=== PATIENT | female | born 1990 | race African-American/Black ===

== ENCOUNTER 2016-05-23 00:08 | Inpatient (IN) | payer SELFPAY ==
[~2016-05-23] VITALS: Ht 165.1 cm; Wt 59.9 kg
[~2016-05-23 00:08] MED LIST: ALBU8.5H6 INH; BUDE10.2 IH; BUDE10.22 IH; PRED20TA PO; PRED50TA PO; PREN1TAB54 PO; PROAIR HFA8.5 GM INH
[2016-05-23] MEDS ORDERED: IPRATRPIUM/ALBUTEROL 0.5/2.5MG 3 ML NEBU. NEB ONE ×2 (00:15→09:00)
[2016-05-23] MEDS ORDERED: IPRATRPIUM/ALBUTEROL 0.5/2.5MG 3 ML NEBU. ONE (00:16)
[2016-05-23] MEDS ORDERED: EPINEPHRINE 1 MG/ML VIAL. ONE (00:23)
[2016-05-23] MEDS ORDERED: ALBUTEROL SULFATE 2.5 MG/3 ML NEBU. CONT NEB ONE (00:30)
[2016-05-23] MEDS ORDERED: methylPREDNISolone SOD SUCC PF 125 MG/2 ML VIAL. IV ONE (00:30)
[2016-05-23 00:38] LABS: BASO # 0.1 x10^3/uL (0.0-0.2); BASO % 1 % (0-3); EOS % 3 % (0-3); HEMATOCRIT 41.8 % (36.0-47.0); HEMOGLOBIN 13.1 g/dL (12.0-15.5); LYMPH # 1.7 x10^3/uL (1.0-4.8); LYMPH % 9 % (24-48); MEAN CORPUSCULAR HEMOGLOBIN 25 pg (25-35); MEAN CORPUSCULAR HGB CONC 31 g/dL (31-37); MEAN CORPUSCULAR VOLUME 79 fL (79-100); MONO % 5 % (0-9); NEUT % 83 % (31-73); PLATELET COUNT 221 x10^3/uL (140-400); RED BLOOD COUNT 5.27 x10^6/uL (3.50-5.40); RED CELL DISTRIBUTION WIDTH 16.7 % (11.5-14.5)
[2016-05-23] MEDS ORDERED: MAGNESIUM SULFATE 2GM 50 ML IV ONE (00:45)
[2016-05-23 00:49] LABS: CALCIUM 9.1 mg/dL (8.5-10.1); CREATININE 0.7 mg/dL (0.6-1.0); GFR 122.4; POTASSIUM 3.7 mmol/L (3.5-5.1)
[2016-05-23] MEDS ORDERED: LORAZEPAM 1 MG TABLET. PO ONE (01:00)
[2016-05-23] MEDS ORDERED: EPINEPHRINE 1 MG/ML VIAL. IM ONE (01:15)
[2016-05-23] MEDS ORDERED: MORPHINE SULFATE 2 MG/ML DISP.SYRIN. IV PRN (02:00)
[2016-05-23] MEDS ORDERED: ONDANSETRON PF 4 MG/2 ML VIAL. IV PRN (02:00)
[2016-05-23 04:09] LABS: HYPOCHROMIA SLIGHT; PLT ESTIMATE ADEQUATE (ADEQUATE)
--- NOTE | 2016-05-23 06:20 | PHYS DOC ---
Past Medical History Past Medical History: Asthma Past Surgical History: No Surgical History Alcohol Use: Occasionally Drug Use: None Adult General Chief Complaint Chief Complaint: ASTHMA HPI HPI 25-year-old female presenting to the emergency department today with worsening shortness of breath and asthma attack. She is having significant difficulty breathing and is able to only speak in short phrases. She has been trying her breathing treatments at home with mild improvement. She reports having cough and chills at home over the past few days. Onset 2-3 days. Location lungs. Duration intermittent. No exacerbating factors present. ROS is negative for abdominal pain nausea vomiting. Positive for cough and chills at home. All other review of systems is negative unless otherwise noted in history of present illness. Review of Systems Review of Systems SEE ABOVE. Current Medications Current Medications Current Medications Medications (Trade) Dose Ordered Sig/Alex Start Time Stop Time Status Last Admin Dose Admin Albuterol Sulfate 15 mg 15 mg 1X ONCE 05/23/16 00:30 05/23/16 00:31 DC 05/23/16 00:34 15 MG Albuterol/ Ipratropium (Duoneb) 3 ml STK-MED ONCE 05/23/16 00:16 05/23/16 00:17 DC Epinephrine HCl (Adrenalin) 0.3 mg 1X ONCE 05/23/16 01:15 05/23/16 01:16 DC 05/23/16 01:07 0.3 MG Lorazepam (Ativan) 1 mg 1X ONCE 05/23/16 01:00 05/23/16 01:01 DC 05/23/16 00:56 1 MG Magnesium Sulfate/ Dextrose (Magnesium Sulfate PREMIX 2GM) 50 ml @ 25 mls/hr 1X ONCE 05/23/16 00:45 05/23/16 02:44 DC 05/23/16 00:35 25 MLS/HR Methylprednisolone Sodium Succinate (Solu-Medrol 125mg Vial) 125 mg 1X ONCE 05/23/16 00:30 05/23/16 00:31 DC 05/23/16 00:34 125 MG Morphine Sulfate 2 mg PRN Q2HR PRN 05/23/16 02:00 05/24/16 01:59 Ondansetron HCl (Zofran) 4 mg PRN Q8HRS PRN 05/23/16 02:00 05/24/16 01:59 Allergies Allergies Allergies Coded Allergies Type Severity Reaction Last Updated Verified No Known Drug Allergies 08/28/14 No Physical Exam Physical Exam Constitutional: Well developed, well nourished, patient is in significant respiratory distress., Work of breathing is significantly increased. Patient speaking in small phrases. HENT: Normocephalic, atraumatic, bilateral external ears normal, oropharynx moist, no oral exudates, nose normal. [] Eyes: PERRLA, EOMI, conjunctiva normal, no discharge. Neck: Normal range of motion, no tenderness, supple, no stridor. Cardiovascular:Heart rate regular rhythm, no murmur [] Lungs & Thorax: Diffuse wheezing both on inspiration and on expiration. Abdomen: Bowel sounds normal, soft, no tenderness, no masses, no pulsatile masses. Skin: Warm, dry, no erythema, no rash. [] Back: No tenderness, no CVA tenderness. Extremities: No tenderness, no cyanosis, no clubbing, ROM intact, no edema. [] Neurologic: Alert and oriented X 3, normal motor function, normal sensory function, no focal deficits noted. [] Psychologic: Affect normal, judgement normal, mood normal. [] Current Patient Data Vital Signs Vital Signs Date Time Temp Pulse Resp B/P Pulse Ox O2 Delivery O2 Flow Rate FiO2 05/23/16 00:40 99 Room Air 05/23/16 00:15 98.0 134 28 151/99 98.0 Lab Values Laboratory Tests Test 05/23/16 00:25 White Blood Count 19.0x10^3/uL (4.0-11.0) H Red Blood Count 5.27x10^6/uL (3.50-5.40) Hemoglobin 13.1g/dL (12.0-15.5) Hematocrit 41.8% (36.0-47.0) Mean Corpuscular Volume 79fL (79-100) Mean Corpuscular Hemoglobin 25pg (25-35) Mean Corpuscular Hemoglobin Concent 31g/dL (31-37) Red Cell Distribution Width 16.7% (11.5-14.5) H Platelet Count 221x10^3/uL (140-400) Neutrophils (%) (Auto) 83% (31-73) H Lymphocytes (%) (Auto) 9% (24-48) L Monocytes (%) (Auto) 5% (0-9) Eosinophils (%) (Auto) 3% (0-3) Basophils (%) (Auto) 1% (0-3) Neutrophils # (Auto) 15.7x10^3uL (1.8-7.7) H Lymphocytes # (Auto) 1.7x10^3/uL (1.0-4.8) Monocytes # (Auto) 1.0x10^3/uL (0.0-1.1) Eosinophils # (Auto) 0.5x10^3/uL (0.0-0.7) Basophils # (Auto) 0.1x10^3/uL (0.0-0.2) Segmented Neutrophils % 78% (35-66) H Band Neutrophils % 2% (0-9) Lymphocytes % 13% (24-48) L Atypical Lymphocytes % (Manual) 1% (0-0) H Monocytes % 6% (0-10) Platelet Estimate Adequate (ADEQUATE) Hypochromasia Slight Sodium Level 141mmol/L (136-145) Potassium Level 3.7mmol/L (3.5-5.1) Chloride Level 106mmol/L (98-107) Carbon Dioxide Level 24mmol/L (21-32) Anion Gap 11 (6-14) Blood Urea Nitrogen 13mg/dL (7-20) Creatinine 0.7mg/dL (0.6-1.0) Estimated GFR (Cockcroft-Gault) 122.4 Glucose Level 98mg/dL (70-99) Calcium Level 9.1mg/dL (8.5-10.1) Laboratory Tests 05/23/16 00:25 Laboratory Tests 05/23/16 00:25 EKG EKG [] EKG shows sinus tachycardia. Normal intervals and axis. ST segments are congruent. Radiology/Procedures Radiology/Procedures [] Course & Med Decision Making Course & Med Decision Making Pertinent Labs and Imaging studies reviewed. (See chart for details) [] 25-year-old female presenting to the emergency department today with significant asthma exacerbation and respiratory distress. Patient was placed on oxygen, IV access obtained. DuoNeb given. One hour of nebulized albuterol given. Solu-Medrol given. Magnesium given. Epinephrine intramuscularly given. On reevaluation the patient improved. Patient still having wheezing. More comfortable. EKG showed sinus tachycardia. Chest x-ray no pulmonary infiltrate present. White blood cell count elevated. Otherwise chemistry panel normal. Patient was then admitted to our ICU for further eval workup and care. Dragon Disclaimer Dragon Disclaimer This electronic medical record was generated, in whole or in part, using a voice recognition dictation system. Departure Departure Impression: Primary Impression: Asthma exacerbation Disposition: ADMITTED INPATIENT Admitting Physician: Trupti Paz Condition: STABLE Referrals: NO PCP (PCP) Critical Care Time Critical care time was 45 minutes exclusive of procedures. Time was spent evaluating, ordering the administration of medications, reevaluating the patient , discussing with the admitting provider and documenting. WOOD CLARK MD May 23, 2016 06:19
--- NOTE | 2016-05-23 07:44 | RAD ---
Single view chest History:Shortness of breath . An AP view of the chest is submitted. Comparison: 05/06/2016. Findings: There is no significant infiltrate, pleural effusion, or pneumothorax. The pericardial cardiac silhouette is within normal limits in size. The trachea is in the midline. No acute osseous abnormality is identified. Impression: There is no evidence of acute cardiopulmonary disease.
--- NOTE | 2016-05-23 08:02 | ACF ---
Admit Criteria Forms Admit Criteria Forms Admit Criteria Forms ASTHMA Clinical Indications for Admission to Inpatient Care (Place 'X' for any and all applicable criteria): Admission is indicated for ANY ONE of the following (1)(2)(3)(4)(5): [ ]I. Absent or markedly diminished breath sounds (silent chest) [ ]II. Oxygen saturation < 92% [ ]III. PaCO2 = / > 42 mm Hg (5.6 kPa) [ ]IV. Peak expiratory flow rate < 40% of predicted or personal best after treatment. [ ]V. Peak expiratory flow rate < 33% of predicted or personal before after treatment [ ]. Change in mental status [ ]VII. Ventilatory support required [ ]VIII. PaO2 < 60 mm Hg (8.0 kPa) [ ]IX. Cyanosis [ ]X. Cardiac dysrhythmia (e.g., bradycardia) [ ]XI. Hemodynamic instability [ ]XII. Radiographic evidence of complication requiring inpatient treatment (e.g., pneumonia, pneumothorax) [X]XIII. Inpatient admission required rather than observation care (also use Asthma: Observation Care guideline as appropriate) because of ANY ONE of the following: [X]a) Respiratory finding that is severe or persistent (eg, dyspnea, tachypnea, accessory muscle use) [ ]b) Airflow measurements less than 60% of predicted or personal best that persist (e.g., over 24 hours) or worsen despite treatments [ ]c) Supplemental oxygen or respiratory treatments for over 24 hours that are performable only in acute inpatient setting [ ]d) Other condition, treatment or monitoring requiring inpatient admission. Extended stay beyond goal length of stay may be needed for (26)(27)(28): [ ]a) Severe respiratory failure (23) (29) (30) [ ]b) Secondary causes and complications (25) [ ]c) Status asthmaticus [ ]d) Chronic obstructive asthma [ ]e) Older patients (29) [ ]f) Slow resolution [ ]g) Clinically significant exacerbation of comorbidities (eg, estuardo. heart failure, atrial fibrillation) The original [facility] content created by [facility] [employer] has been revised. The portions of the content which have been revised are identified through the use of italic text or in bold, and [facility] has neither reviewed nor approved the modified material. All other unmodified content is copyright [facility] Please see references footnoted in the original [facility] edition 2016 ASTRID LOPEZ May 23, 2016 08:02
[2016-05-23 10:51] VITALS: BP 139/85
--- NOTE | 2016-05-23 10:58 | PDOC ---
Provider Note Provider Note [id number] acute resp fail acute bronchitis ae of asthma allergic rhinitis see orders. PIPE DSOUZA MD May 23, 2016 10:58
[2016-05-23] MEDS: ENOXAPARIN 40 MG/0.4 ML DISP.SYRIN. SQ SCH (11:00)
[2016-05-23] MEDS: PANTOPRAZOLE 40 MG TABLET. PO SCH ×3 (12:00→12:14)
[2016-05-23] MEDS: IPRATRPIUM/ALBUTEROL 0.5/2.5MG 3 ML NEBU. NEB SCH ×3 (12:06→20:00)
[2016-05-23] MEDS: CEFTRIAXONE SODIUM 1 GM in IV NORMAL SALINE 50ML 50 ML IV SCH (12:12)
[2016-05-23 12:16] LABS: BILIRUBIN,URINE NEGATIVE (NEG); GLUCOSE,URINE >=1000 mg/dL (NEG); NITRITE,URINE NEGATIVE (NEG); PROTEIN,URINE NEGATIVE (NEG-TRACE); UROBILINOGEN,URINE 0.2 mg/dL (0.2 mg/dL)
[2016-05-23 12:28] LABS: BACTERIA,URINE 0 /HPF (0-FEW); RBC,URINE 0 /HPF (0-2); WBC,URINE 0 /HPF (0-4)
[2016-05-23 12:55] VITALS: BP 139/85
[2016-05-23] MEDS: methylPREDNISolone SOD SUCC PF 40 MG/ML VIAL. IV SCH ×2 (14:00→21:03)
--- NOTE | 2016-05-23 14:19 | CONS ---
DATE OF CONSULTATION: 05/23/2016 I was asked to see this 25-year-old lady for acute respiratory failure, acute asthma exacerbation. HISTORY OF PRESENT ILLNESS: She does not smoke. She has asthma. She was at [facility] 2-3 weeks ago with acute exacerbation of asthma. She was prescribed Symbicort, but she is not able to afford it. Her children have been ill. She started to have increased shortness of breath, cough and wheezing a few days ago. Her cough has increased and she has yellow sputum production. She has had wheezing. She has nasal congestion. She denies body ache. She had fever a few days ago. PAST MEDICAL HISTORY: Asthma. ALLERGIES: No known drug allergies. MEDICATIONS: In the Emergency Room, she was given albuterol-Atrovent nebulizer, epinephrine, lorazepam, Solu-Medrol. SOCIAL HISTORY: She does not smoke. FAMILY HISTORY: There is no history of asthma. REVIEW OF SYSTEMS: As mentioned as above. Her last menstruation started at the beginning of the month. She does have, which appears to be an IUD, she is not sure. Other systems are otherwise negative. PHYSICAL EXAMINATION: GENERAL: This is a lady, mildly tachypneic. VITAL SIGNS: Her respiratory rate is 24, heart rate 114, blood pressure 127/79, temperature 98, O2 saturation on 2 liters of oxygen is 94%. HEENT: Normocephalic, atraumatic. Pupils equal, round, reactive to light. Throat is clear. Nose: There is inflamed mucosa. NECK: There is no JVD, lymphadenopathy or thyromegaly. CARDIOVASCULAR: Tachycardic. CHEST: Inspection, she appears tachypneic. LUNGS: There is bilateral end-expiratory wheezing, percussion nll. ABDOMEN: Soft. Bowel sounds are good. There is no mass. EXTREMITIES: There is no edema. LYMPHATICS: There is no lymphadenopathy. SKIN: Warm. NEUROLOGIC: Alert and oriented x 3. LABORATORY DATA: I reviewed the following lab data: Chest x-ray does not show infiltrate. WBC 19, hemoglobin 13.1, platelets 221. Sodium 141, potassium 3.7, chloride 106, CO2 24, glucose 98, BUN 13, creatinine 0.7. IMPRESSION: 1. Acute hypoxemic respiratory failure, multifactorial in etiology. 2. Acute exacerbation of chronic obstructive pulmonary disease. 3. Acute bronchitis. 4. Asthma. 5. Tachycardia. 6. Leukocytosis. 7. Allergic rhinitis. PLAN AND RECOMMENDATIONS: 1. Titrate FiO2 to keep O2 saturation 92%. 2. Bronchodilator. 3. Inhaled corticosteroid. 4. Solu-Medrol 40 mg IV every 8 hours. 5. Start Rocephin. 6. Sputum culture. 7. Influenza A and B, Legionella and Strep pneumoniae urine antigen. 8. Lovenox for DVT prophylaxis. 9. Protonix for stress ulcer prophylaxis. 10. Monitor respiratory status very closely. 11. Start Singulair. 12. I have discussed asthma pathophysiology, the importance of treatment and the importance of using inhaled corticosteroids. She understands, but she cannot afford the inhaled corticosteroids, Symbicort or any other inhalers. 13. The findings and recommendations were discussed with the patient and RN. I have answered all of the patient's questions. She understood and agreed to proceed with the plan. We may consider consulting clinical social worker to help her with her medications. I will discuss that with her primary physician. Thank you very much for allowing me to participate in care of this very nice lady. PIPE DSOUZA M.D. : Mi JOB#: [id number] / [id number] AISHWARYA
[2016-05-23 15:00] VITALS: BP 114/70
--- NOTE | 2016-05-23 18:50 | EKG ---
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
[2016-05-23 19:00] VITALS: BP 131/84
[2016-05-23] MEDS: BUDESONIDE 0.5 MG/2 ML NEBU NEB SCH (20:00)
[2016-05-23] MEDS: MONTELUKAST SODIUM 10 MG TABLET. PO SCH (21:03)
[2016-05-23 23:00] VITALS: BP 134/91
[2016-05-24 03:00] VITALS: BP 121/80
[2016-05-24 05:41] LABS: BASO % 0 % (0-3); EOS % 0 % (0-3); HEMATOCRIT 39.1 % (36.0-47.0); HEMOGLOBIN 12.1 g/dL (12.0-15.5); LYMPH # 1.1 x10^3/uL (1.0-4.8); LYMPH % 5 % (24-48); MEAN CORPUSCULAR HEMOGLOBIN 25 pg (25-35); MEAN CORPUSCULAR HGB CONC 31 g/dL (31-37); MEAN CORPUSCULAR VOLUME 80 fL (79-100); MONO % 4 % (0-9); NEUT % 91 % (31-73); PLATELET COUNT 215 x10^3/uL (140-400); RED BLOOD COUNT 4.92 x10^6/uL (3.50-5.40)
[2016-05-24] MEDS: methylPREDNISolone SOD SUCC PF 40 MG/ML VIAL. IV SCH ×3 (06:05→20:25)
[2016-05-24 06:06] LABS: CALCIUM 9.1 mg/dL (8.5-10.1); CREATININE 0.7 mg/dL (0.6-1.0); GFR 122.4; POTASSIUM 4.4 mmol/L (3.5-5.1)
[2016-05-24 07:00] VITALS: BP 120/84
[2016-05-24] MEDS: PANTOPRAZOLE 40 MG TABLET. PO SCH (07:30)
[2016-05-24] MEDS: BUDESONIDE 0.5 MG/2 ML NEBU NEB SCH ×2 (07:53→20:12)
[2016-05-24] MEDS: IPRATRPIUM/ALBUTEROL 0.5/2.5MG 3 ML NEBU. NEB SCH ×4 (07:53→20:12)
--- NOTE | 2016-05-24 09:16 | PDOC ---
PULMONARY PROGRESS NOTES Subjective has sob, cough, wheezing, nasal congestion Vitals Vital Signs Date Time Temp Pulse Resp B/P Pulse Ox O2 Delivery O2 Flow Rate FiO2 05/24/16 07:53 97 Nasal Cannula 1.0 05/24/16 07:00 98.2 83 20 120/84 98.2 Comments ros, as mentioned as above, other sys otherwise neg General: Alert, No acute distress HEENT: Other (nc at, perrl, nose, inflamed mucosa) Lungs: Wheezing Cardiovascular: S1 Abdomen: Soft Neuro Exam: Alert, Oriented Extremities: No Edema Labs Laboratory Tests Test 05/23/16 00:25 05/23/16 08:25 05/23/16 12:04 05/23/16 13:50 White Blood Count 19.0x10^3/uL (4.0-11.0) Red Blood Count 5.27x10^6/uL (3.50-5.40) Hemoglobin 13.1g/dL (12.0-15.5) Hematocrit 41.8% (36.0-47.0) Mean Corpuscular Volume 79fL (79-100) Mean Corpuscular Hemoglobin 25pg (25-35) Mean Corpuscular Hemoglobin Concent 31g/dL (31-37) Red Cell Distribution Width 16.7% (11.5-14.5) Platelet Count 221x10^3/uL (140-400) Neutrophils (%) (Auto) 83% (31-73) Lymphocytes (%) (Auto) 9% (24-48) Monocytes (%) (Auto) 5% (0-9) Eosinophils (%) (Auto) 3% (0-3) Basophils (%) (Auto) 1% (0-3) Neutrophils # (Auto) 15.7x10^3uL (1.8-7.7) Lymphocytes # (Auto) 1.7x10^3/uL (1.0-4.8) Monocytes # (Auto) 1.0x10^3/uL (0.0-1.1) Eosinophils # (Auto) 0.5x10^3/uL (0.0-0.7) Basophils # (Auto) 0.1x10^3/uL (0.0-0.2) Segmented Neutrophils % 78% (35-66) Band Neutrophils % 2% (0-9) Lymphocytes % 13% (24-48) Atypical Lymphocytes % (Manual) 1% (0-0) Monocytes % 6% (0-10) Platelet Estimate Adequate (ADEQUATE) Hypochromasia Slight Sodium Level 141mmol/L (136-145) Potassium Level 3.7mmol/L (3.5-5.1) Chloride Level 106mmol/L (98-107) Carbon Dioxide Level 24mmol/L (21-32) Anion Gap 11 (6-14) Blood Urea Nitrogen 13mg/dL (7-20) Creatinine 0.7mg/dL (0.6-1.0) Estimated GFR (Cockcroft-Gault) 122.4 Glucose Level 98mg/dL (70-99) Calcium Level 9.1mg/dL (8.5-10.1) Troponin I Quantitative < 0.017ng/mL (0.000-0.055) < 0.017ng/mL (0.000-0.055) Urine Collection Type Unknown Urine Color Yellow Urine Clarity Clear Urine pH 6.0 Urine Specific Kirk >=1.030 Urine Protein Negativemg/dL (NEG-TRACE) Urine Glucose (UA) >=1000mg/dL (NEG) Urine Ketones (Stick) Negativemg/dL (NEG) Urine Blood Negative (NEG) Urine Nitrite Negative (NEG) Urine Bilirubin Negative (NEG) Urine Urobilinogen Dipstick 0.2mg/dL (0.2 mg/dL) Urine Leukocyte Esterase Negative (NEG) Urine RBC 0/HPF (0-2) Urine WBC 0/HPF (0-4) Urine Bacteria 0/HPF (0-FEW) Urine Mucus Slight/LPF Test 05/24/16 05:10 White Blood Count 22.0x10^3/uL (4.0-11.0) Red Blood Count 4.92x10^6/uL (3.50-5.40) Hemoglobin 12.1g/dL (12.0-15.5) Hematocrit 39.1% (36.0-47.0) Mean Corpuscular Volume 80fL (79-100) Mean Corpuscular Hemoglobin 25pg (25-35) Mean Corpuscular Hemoglobin Concent 31g/dL (31-37) Red Cell Distribution Width 17.0% (11.5-14.5) Platelet Count 215x10^3/uL (140-400) Neutrophils (%) (Auto) 91% (31-73) Lymphocytes (%) (Auto) 5% (24-48) Monocytes (%) (Auto) 4% (0-9) Eosinophils (%) (Auto) 0% (0-3) Basophils (%) (Auto) 0% (0-3) Neutrophils # (Auto) 20.0x10^3uL (1.8-7.7) Lymphocytes # (Auto) 1.1x10^3/uL (1.0-4.8) Monocytes # (Auto) 1.0x10^3/uL (0.0-1.1) Eosinophils # (Auto) 0.0x10^3/uL (0.0-0.7) Basophils # (Auto) 0.0x10^3/uL (0.0-0.2) Sodium Level 136mmol/L (136-145) Potassium Level 4.4mmol/L (3.5-5.1) Chloride Level 104mmol/L (98-107) Carbon Dioxide Level 22mmol/L (21-32) Anion Gap 10 (6-14) Blood Urea Nitrogen 10mg/dL (7-20) Creatinine 0.7mg/dL (0.6-1.0) Estimated GFR (Cockcroft-Gault) 122.4 Glucose Level 120mg/dL (70-99) Calcium Level 9.1mg/dL (8.5-10.1) Laboratory Tests Test 05/23/16 12:04 05/23/16 13:50 05/24/16 05:10 Urine Collection Type Unknown Urine Color Yellow Urine Clarity Clear Urine pH 6.0 Urine Specific Kirk >=1.030 Urine Protein Negativemg/dL (NEG-TRACE) Urine Glucose (UA) >=1000mg/dL (NEG) Urine Ketones (Stick) Negativemg/dL (NEG) Urine Blood Negative (NEG) Urine Nitrite Negative (NEG) Urine Bilirubin Negative (NEG) Urine Urobilinogen Dipstick 0.2mg/dL (0.2 mg/dL) Urine Leukocyte Esterase Negative (NEG) Urine RBC 0/HPF (0-2) Urine WBC 0/HPF (0-4) Urine Bacteria 0/HPF (0-FEW) Urine Mucus Slight/LPF Troponin I Quantitative < 0.017ng/mL (0.000-0.055) White Blood Count 22.0x10^3/uL (4.0-11.0) Red Blood Count 4.92x10^6/uL (3.50-5.40) Hemoglobin 12.1g/dL (12.0-15.5) Hematocrit 39.1% (36.0-47.0) Mean Corpuscular Volume 80fL (79-100) Mean Corpuscular Hemoglobin 25pg (25-35) Mean Corpuscular Hemoglobin Concent 31g/dL (31-37) Red Cell Distribution Width 17.0% (11.5-14.5) Platelet Count 215x10^3/uL (140-400) Neutrophils (%) (Auto) 91% (31-73) Lymphocytes (%) (Auto) 5% (24-48) Monocytes (%) (Auto) 4% (0-9) Eosinophils (%) (Auto) 0% (0-3) Basophils (%) (Auto) 0% (0-3) Neutrophils # (Auto) 20.0x10^3uL (1.8-7.7) Lymphocytes # (Auto) 1.1x10^3/uL (1.0-4.8) Monocytes # (Auto) 1.0x10^3/uL (0.0-1.1) Eosinophils # (Auto) 0.0x10^3/uL (0.0-0.7) Basophils # (Auto) 0.0x10^3/uL (0.0-0.2) Sodium Level 136mmol/L (136-145) Potassium Level 4.4mmol/L (3.5-5.1) Chloride Level 104mmol/L (98-107) Carbon Dioxide Level 22mmol/L (21-32) Anion Gap 10 (6-14) Blood Urea Nitrogen 10mg/dL (7-20) Creatinine 0.7mg/dL (0.6-1.0) Estimated GFR (Cockcroft-Gault) 122.4 Glucose Level 120mg/dL (70-99) Calcium Level 9.1mg/dL (8.5-10.1) Medications Active Scripts Medications Dose Route/Sig Days Date Category Symbicort 160-4.5 Mcg Inhaler (Budesonide/Formoterol Fumarate) 10.2 Gm Hfa.aer.ad 2 Puff IH DAILY 05/08/16 Rx Proair Hfa Inhaler (Albuterol Sulfate) 8.5 Gm Hfa.aer.ad 1 Puff INH PRN Q6HRS PRN 04/15/16 Rx Formula ( Vits W-Ca,Fe,Fa(<1MG)) 1 Each Tablet 1 Each PO 06/11/14 Reported Albuterol Sulfate Hfa Inhaler (Albuterol Sulfate) 8.5 Gm Hfa.aer.ad 2 Puff INH Q4HRS 06/11/14 Reported Comments cxr reviewed, no infilt Impression . IMPRESSION: 1. Acute hypoxemic respiratory failure, multifactorial in etiology. 2. Acute exacerbation of chronic obstructive pulmonary disease. 3. Acute bronchitis. 4. Asthma. 5. Tachycardia. 6. Leukocytosis. 7. Allergic rhinitis. Plan . PLAN AND RECOMMENDATIONS: 1. Titrate FiO2 to keep O2 saturation 92%. 2. Bronchodilator. 3. Inhaled corticosteroid. 4. Solu-Medrol 40 mg IV every 8 hours, still wheezing, no change. 5. Rocephin. 6. fu Sputum culture. 7. fu Influenza A and B, Legionella and Strep pneumoniae urine antigen. 8. Lovenox for DVT prophylaxis. 9. Protonix for stress ulcer prophylaxis. 10. Monitor respiratory status very closely. 11. Singulair. 12. I have discussed asthma pathophysiology, the importance of treatment and the importance of using inhaled corticosteroids. She understands, but she cannot afford the inhaled corticosteroids, Symbicort or any other inhalers. 13. add flonase The findings and recommendations were discussed with the patient and RN. I have answered all of the patient's questions. She understood and agreed to proceed with the plan. PIPE DSOUZA MD May 24, 2016 09:16
[2016-05-24] MEDS: FLUTICASONE 50MCG/NASAL SPRAY 16GM BOTTLE. NS SCH (10:17)
[2016-05-24] MEDS: CEFTRIAXONE SODIUM 1 GM in IV NORMAL SALINE 50ML 50 ML IV SCH (10:18)
[2016-05-24 11:00] VITALS: BP 109/56
[2016-05-24] MEDS: ENOXAPARIN 40 MG/0.4 ML DISP.SYRIN. SQ SCH (11:00)
[2016-05-24] MEDS ORDERED: NON FORMULARY ITEM (Albuterol Sulfate (Proair Hfa Inhaler) 1 PUFF) INH PRN (14:15)
[2016-05-24] MEDS ORDERED: CEFTRIAXONE SODIUM 1 GM in IV NORMAL SALINE 50ML 50 ML IV SCH (14:15)
[2016-05-24] MEDS ORDERED: ALBUTEROL SULFATE 2.5 MG/3 ML NEBU. NEB PRN (14:15)
[2016-05-24 16:00] VITALS: BP 119/8
[2016-05-24 19:00] VITALS: BP 123/72
[2016-05-24 19:12] LABS: SPECIMEN SOURCE Urine (.)
[2016-05-24] MEDS: MONTELUKAST SODIUM 10 MG TABLET. PO SCH (20:24)
--- NOTE | 2016-05-24 22:17 | HP ---
ADMIT DATE: 05/23/2016 CHIEF COMPLAINT: Shortness of breath and wheezing. HISTORY OF PRESENT ILLNESS: The patient is a pleasant middle-aged female who presents with shortness of breath and wheezing. She has asthma. She rates her symptoms at 7/10. It has been occurring for several days. I have discussed the case with the ER physician. We are going to admit her with IV steroids, breathing treatments, oxygen and consultation with pulmonary medicine. PAST MEDICAL HISTORY: Asthma. ALLERGIES: None. FAMILY HISTORY: Diabetes. SOCIAL HISTORY: She does not drink, smoke or take drugs. MEDICATIONS: Reviewed, please refer to the MRAD. REVIEW OF SYSTEMS: GENERAL: No history of weight change, weakness or fevers. SKIN: No bruising, hair changes or rashes. EYES: No blurred, double or loss of vision. NOSE AND THROAT: No history of nosebleeds, hoarseness or sore throat. HEART: No history of palpitations, chest pain or shortness of breath on exertion. LUNGS: The patient complains of shortness of breath and wheezing. GASTROINTESTINAL: Denies changes in appetite, nausea, vomiting, diarrhea or constipation. GENITOURINARY: No history of frequency, urgency, hesitancy or nocturia. NEUROLOGIC: Denies history of numbness, tingling, tremor or weakness. PSYCHIATRIC: No history of panic, anxiety or depression. ENDOCRINE: No history of heat or cold intolerance, polyuria or polydipsia. EXTREMITIES: Denies muscle weakness, joint pain, pain on walking or stiffness. PHYSICAL EXAMINATION: VITAL SIGNS: Temperature afebrile, pulse 74, respirations 18, blood pressure 128/84. GENERAL: She is alert, cooperative. HEART: Normal S1, S2. LUNGS: Diffuse wheezing. ABDOMEN: Soft. EXTREMITIES: No edema. SKIN: No rashes. PSYCHIATRIC: She is stable. VASCULAR: Good capillary refill. ENDOCRINE: No thyromegaly. LYMPHATICS: No cervical nodes. HEMATOPOIETIC: No bruising. LABORATORY DATA: White count 19, hemoglobin 13, platelets 221. Electrolytes, normal. ASSESSMENT AND PLAN: Asthma exacerbation with leukocytosis. The patient has been admitted. We will consult Pulmonary Medicine. Start empiric IV Rocephin, DuoNebs, IV steroids, oxygen. CHIOMA SHERWOOD DO DR: NIKI/yoli JOB#: [id number] / [id number]
[2016-05-24 23:00] VITALS: BP 138/95
[2016-05-25 03:00] VITALS: BP 131/81
[2016-05-25] MEDS: methylPREDNISolone SOD SUCC PF 40 MG/ML VIAL. IV SCH ×3 (05:42→22:52)
[2016-05-25 07:00] VITALS: BP 129/74
[2016-05-25 07:28] LABS: BASO % 0 % (0-3); EOS % 0 % (0-3); HEMOGLOBIN 11.6 g/dL (12.0-15.5); LYMPH # 1.6 x10^3/uL (1.0-4.8); LYMPH % 9 % (24-48); MEAN CORPUSCULAR HEMOGLOBIN 25 pg (25-35); MEAN CORPUSCULAR HGB CONC 31 g/dL (31-37); MEAN CORPUSCULAR VOLUME 79 fL (79-100); MONO % 5 % (0-9); NEUT % 86 % (31-73); PLATELET COUNT 213 x10^3/uL (140-400); RED BLOOD COUNT 4.67 x10^6/uL (3.50-5.40); RED CELL DISTRIBUTION WIDTH 17.1 % (11.5-14.5); WHITE BLOOD COUNT 17.9 x10^3/uL (4.0-11.0)
[2016-05-25 07:30] LABS: CALCIUM 9.1 mg/dL (8.5-10.1); CREATININE 0.7 mg/dL (0.6-1.0); GFR 122.4; POTASSIUM 4.4 mmol/L (3.5-5.1)
[2016-05-25] MEDS: PANTOPRAZOLE 40 MG TABLET. PO SCH (07:30)
[2016-05-25] MEDS: FLUTICASONE 50MCG/NASAL SPRAY 16GM BOTTLE. NS SCH (08:09)
[2016-05-25] MEDS: IPRATRPIUM/ALBUTEROL 0.5/2.5MG 3 ML NEBU. NEB SCH ×4 (08:32→20:11)
[2016-05-25] MEDS: BUDESONIDE 0.5 MG/2 ML NEBU NEB SCH ×2 (08:32→20:11)
[2016-05-25] MEDS ORDERED: NON FORMULARY ITEM (Budesonide/Formoterol Fumarate (Symbicort 160-4.5 Mcg Inhaler) 2 PUFF) IH SCH (09:00)
[2016-05-25 11:00] VITALS: BP 125/72
[2016-05-25] MEDS: ENOXAPARIN 40 MG/0.4 ML DISP.SYRIN. SQ SCH (11:00)
[2016-05-25] MEDS: CEFTRIAXONE SODIUM 1 GM in IV NORMAL SALINE 50ML 50 ML IV SCH (11:20)
--- NOTE | 2016-05-25 11:24 | PDOC ---
PROGRESS NOTES Chief Complaint Chief Complaint 1. Acute hypoxemic respiratory failure, multifactorial in etiology. 2. Acute exacerbation of chronic obstructive pulmonary disease. 3. Acute bronchitis. 4. Asthma. 5. Tachycardia. 6. Leukocytosis. 7. Allergic rhinitis. History of Present Illness History of Present Illness Patient awake, alert, and sitting up in bed when seen this AM. Pt states that she is feeling "much better" then yesterday. Pt feels like she is ready to go home. Pt denies any current SOB, CP, or wheezing. All questions and concerns answered and addressed. Vitals Vitals Vital Signs Date Time Temp Pulse Resp B/P Pulse Ox O2 Delivery O2 Flow Rate FiO2 05/25/16 08:33 96 Room Air 05/25/16 07:00 98.1 68 18 129/74 98.1 05/24/16 20:25 1.0 Physical Exam General: Alert, Oriented X3, Cooperative, No acute distress Heart: Regular rate, Normal S1, Normal S2, No murmurs Lungs: Clear Abdomen: Normal bowel sounds, Soft, No tenderness, No hepatosplenomegaly Extremities: No clubbing, No cyanosis, No edema, Normal pulses Skin: No rashes, No breakdown, No significant lesion Labs LABS Laboratory Tests Test 05/25/16 06:40 White Blood Count 17.9x10^3/uL (4.0-11.0) Red Blood Count 4.67x10^6/uL (3.50-5.40) Hemoglobin 11.6g/dL (12.0-15.5) Hematocrit 37.0% (36.0-47.0) Mean Corpuscular Volume 79fL (79-100) Mean Corpuscular Hemoglobin 25pg (25-35) Mean Corpuscular Hemoglobin Concent 31g/dL (31-37) Red Cell Distribution Width 17.1% (11.5-14.5) Platelet Count 213x10^3/uL (140-400) Neutrophils (%) (Auto) 86% (31-73) Lymphocytes (%) (Auto) 9% (24-48) Monocytes (%) (Auto) 5% (0-9) Eosinophils (%) (Auto) 0% (0-3) Basophils (%) (Auto) 0% (0-3) Neutrophils # (Auto) 15.3x10^3uL (1.8-7.7) Lymphocytes # (Auto) 1.6x10^3/uL (1.0-4.8) Monocytes # (Auto) 1.0x10^3/uL (0.0-1.1) Eosinophils # (Auto) 0.0x10^3/uL (0.0-0.7) Basophils # (Auto) 0.0x10^3/uL (0.0-0.2) Sodium Level 140mmol/L (136-145) Potassium Level 4.4mmol/L (3.5-5.1) Chloride Level 107mmol/L (98-107) Carbon Dioxide Level 24mmol/L (21-32) Anion Gap 9 (6-14) Blood Urea Nitrogen 13mg/dL (7-20) Creatinine 0.7mg/dL (0.6-1.0) Estimated GFR (Cockcroft-Gault) 122.4 Glucose Level 110mg/dL (70-99) Calcium Level 9.1mg/dL (8.5-10.1) Review of Systems Review of Systems Patient complaint of hunger Patient complaint of fatigue Assessment and Plan Assessmemt and Plan Problems Medical Problems: (1) Asthma exacerbation Status: Acute Assessment: 1. Acute hypoxemic respiratory failure, multifactorial in etiology. 2. Acute exacerbation of chronic obstructive pulmonary disease. 3. Acute bronchitis. 4. Asthma. 5. Tachycardia. 6. Leukocytosis. 7. Allergic rhinitis. Plan: Continue to monitor the patient per floor protocol Continue to monitor daily labs- CBC, BMP, BUN, Cr Monitor WBCs watching for trend Await results of PFTs Continue IV Abx- Rocephin Per Pulmonary recommendation -continue breathing treatments -IV Solu medrol 40 q8 -Add Romero ZALDIVAR RN No need for daily PTOT Problems: Comment Review of Relevant I have reviewed the following items elizabet (where applicable) has been applied. Labs Laboratory Tests Test 05/23/16 12:04 05/23/16 13:50 05/24/16 05:10 05/25/16 06:40 Urine Collection Type Unknown Urine Color Yellow Urine Clarity Clear Urine pH 6.0 Urine Specific Palms >=1.030 Urine Protein Negativemg/dL (NEG-TRACE) Urine Glucose (UA) >=1000mg/dL (NEG) Urine Ketones (Stick) Negativemg/dL (NEG) Urine Blood Negative (NEG) Urine Nitrite Negative (NEG) Urine Bilirubin Negative (NEG) Urine Urobilinogen Dipstick 0.2mg/dL (0.2 mg/dL) Urine Leukocyte Esterase Negative (NEG) Urine RBC 0/HPF (0-2) Urine WBC 0/HPF (0-4) Urine Bacteria 0/HPF (0-FEW) Urine Mucus Slight/LPF Body Fluid Culture (LAB) (.) Urine Legionella Antigen Negative (Negative) Streptococcus pneumoniae Antigen Negative (Negative) Organism Identification (LAB) (.) [place] Specimen Source Urine (.) Troponin I Quantitative < 0.017ng/mL (0.000-0.055) White Blood Count 22.0x10^3/uL (4.0-11.0) 17.9x10^3/uL (4.0-11.0) Red Blood Count 4.92x10^6/uL (3.50-5.40) 4.67x10^6/uL (3.50-5.40) Hemoglobin 12.1g/dL (12.0-15.5) 11.6g/dL (12.0-15.5) Hematocrit 39.1% (36.0-47.0) 37.0% (36.0-47.0) Mean Corpuscular Volume 80fL (79-100) 79fL (79-100) Mean Corpuscular Hemoglobin 25pg (25-35) 25pg (25-35) Mean Corpuscular Hemoglobin Concent 31g/dL (31-37) 31g/dL (31-37) Red Cell Distribution Width 17.0% (11.5-14.5) 17.1% (11.5-14.5) Platelet Count 215x10^3/uL (140-400) 213x10^3/uL (140-400) Neutrophils (%) (Auto) 91% (31-73) 86% (31-73) Lymphocytes (%) (Auto) 5% (24-48) 9% (24-48) Monocytes (%) (Auto) 4% (0-9) 5% (0-9) Eosinophils (%) (Auto) 0% (0-3) 0% (0-3) Basophils (%) (Auto) 0% (0-3) 0% (0-3) Neutrophils # (Auto) 20.0x10^3uL (1.8-7.7) 15.3x10^3uL (1.8-7.7) Lymphocytes # (Auto) 1.1x10^3/uL (1.0-4.8) 1.6x10^3/uL (1.0-4.8) Monocytes # (Auto) 1.0x10^3/uL (0.0-1.1) 1.0x10^3/uL (0.0-1.1) Eosinophils # (Auto) 0.0x10^3/uL (0.0-0.7) 0.0x10^3/uL (0.0-0.7) Basophils # (Auto) 0.0x10^3/uL (0.0-0.2) 0.0x10^3/uL (0.0-0.2) Sodium Level 136mmol/L (136-145) 140mmol/L (136-145) Potassium Level 4.4mmol/L (3.5-5.1) 4.4mmol/L (3.5-5.1) Chloride Level 104mmol/L (98-107) 107mmol/L (98-107) Carbon Dioxide Level 22mmol/L (21-32) 24mmol/L (21-32) Anion Gap 10 (6-14) 9 (6-14) Blood Urea Nitrogen 10mg/dL (7-20) 13mg/dL (7-20) Creatinine 0.7mg/dL (0.6-1.0) 0.7mg/dL (0.6-1.0) Estimated GFR (Cockcroft-Gault) 122.4 122.4 Glucose Level 120mg/dL (70-99) 110mg/dL (70-99) Calcium Level 9.1mg/dL (8.5-10.1) 9.1mg/dL (8.5-10.1) Laboratory Tests Test 05/25/16 06:40 White Blood Count 17.9x10^3/uL (4.0-11.0) Red Blood Count 4.67x10^6/uL (3.50-5.40) Hemoglobin 11.6g/dL (12.0-15.5) Hematocrit 37.0% (36.0-47.0) Mean Corpuscular Volume 79fL (79-100) Mean Corpuscular Hemoglobin 25pg (25-35) Mean Corpuscular Hemoglobin Concent 31g/dL (31-37) Red Cell Distribution Width 17.1% (11.5-14.5) Platelet Count 213x10^3/uL (140-400) Neutrophils (%) (Auto) 86% (31-73) Lymphocytes (%) (Auto) 9% (24-48) Monocytes (%) (Auto) 5% (0-9) Eosinophils (%) (Auto) 0% (0-3) Basophils (%) (Auto) 0% (0-3) Neutrophils # (Auto) 15.3x10^3uL (1.8-7.7) Lymphocytes # (Auto) 1.6x10^3/uL (1.0-4.8) Monocytes # (Auto) 1.0x10^3/uL (0.0-1.1) Eosinophils # (Auto) 0.0x10^3/uL (0.0-0.7) Basophils # (Auto) 0.0x10^3/uL (0.0-0.2) Sodium Level 140mmol/L (136-145) Potassium Level 4.4mmol/L (3.5-5.1) Chloride Level 107mmol/L (98-107) Carbon Dioxide Level 24mmol/L (21-32) Anion Gap 9 (6-14) Blood Urea Nitrogen 13mg/dL (7-20) Creatinine 0.7mg/dL (0.6-1.0) Estimated GFR (Cockcroft-Gault) 122.4 Glucose Level 110mg/dL (70-99) Calcium Level 9.1mg/dL (8.5-10.1) Microbiology 05/23/16 Blood Culture - Preliminary, Resulted NO GROWTH AFTER 2 DAYS 05/23/16 Gram Stain - Final, Complete Medications Current Medications Albuterol/ Ipratropium (Duoneb) 3 ml 1X ONCE NEB Last administered on t 00:20; Start 05/23/16 at 00:15; Stop 05/23/16 at 00:16; Status DC Albuterol/ Ipratropium (Duoneb) 3 ml STK-MED ONCE .ROUTE ; Start 05/23/16 at 00: 16; Stop 05/23/16 at 00:17; Status DC Methylprednisolone Sodium Succinate (Solu-Medrol 125mg Vial) 125 mg 1X ONCE IV Last administered on 05/23/16 00:34; Start 05/23/16 at 00:30; Stop 05/23/16 at 00:31; Status DC Albuterol Sulfate 15 mg 15 mg 1X ONCE CONT NEB Last administered on 05/23/16 00:34; Start 05/23/16 at 00:30; Stop 05/23/16 at 00:31; Status DC Magnesium Sulfate/ Dextrose (Magnesium Sulfate PREMIX 2GM) 50 ml @ 25 mls/hr 1X ONCE IV Last administered on 05/23/16 00:35; Start 05/23/16 at 00:45; Stop 05/23/16 at 02:44; Status DC Epinephrine HCl (Adrenalin) 1 mg STK-MED ONCE .ROUTE ; Start 05/23/16 at 00:23; Stop 05/23/16 at 00:24; Status DC Lorazepam (Ativan) 1 mg 1X ONCE PO Last administered on 05/23/16 00:56; Start 05/23/16 at 01:00; Stop 05/23/16 at 01:01; Status DC Epinephrine HCl (Adrenalin) 0.3 mg 1X ONCE IM Last administered on 05/23/16 01:07; Start 05/23/16 at 01:15; Stop 05/23/16 at 01:16; Status DC Ondansetron HCl (Zofran) 4 mg PRN Q8HRS PRN IV NAUSEA/VOMITING; Start 05/23/16 at 02:00; Stop 05/24/16 at 01:59; Status DC Morphine Sulfate 2 mg PRN Q2HR PRN IV PAIN; Start 05/23/16 at 02:00; Stop 05/24 at 01:59; Status DC Albuterol/ Ipratropium (Duoneb) 3 ml 1X ONCE NEB Last administered on 09:05; Start 05/23/16 at 09:00; Stop 05/23/16 at 09:01; Status DC Methylprednisolone Sodium Succinate 40 mg 40 mg Q8HRS IV Last administered on 05:42; Start 05/23/16 at 14:00 Ceftriaxone Sodium/Sodium Chloride (Rocephin/Iv Sodium Chloride 0.9% 50ml) 50 ml @ 100 mls/hr Q24H IV Last administered on 05/24/16 10:18; Start 05/23/16 at 11:00 Albuterol/ Ipratropium (Duoneb) 3 ml RTQID NEB Last administered on 05/25/16 08:32; Start 05/23/16 at 12:00 Budesonide (Pulmicort) 0.5 mg RTBID NEB Last administered on 05/25/16 08:32; Start 05/23/16 at 20:00 Enoxaparin Sodium (Lovenox 40mg Syringe) 40 mg Q24H SQ ; Start 05/23/16 at 11:00 Pantoprazole Sodium (Protonix) 40 mg DAILYAC PO ; Start 05/23/16 at 12:00 Montelukast Sodium (Singulair) 10 mg QHS PO Last administered on 05/24/16 20: 24; Start 05/23/16 at 21:00 Fluticasone Propionate (Flonase) 2 spray DAILY NS Last administered on 08:09; Start 05/24/16 at 10:00 Albuterol Sulfate (Ventolin Neb Soln) 2.5 mg PRN Q4HRS PRN NEB SHORTNESS OF BREATH; Start 05/24/16 at 14:15 Non-Formulary Medication 1 puff PRN Q6HRS PRN INH SHORTNESS OF BREATH; Start at 14:15; Status UNV Non-Formulary Medication 2 puff 2 puff DAILY IH ; Start 05/25/16 at 09:00; Status UNV Ceftriaxone Sodium/Sodium Chloride (Rocephin/Iv Sodium Chloride 0.9% 50ml) 50 ml @ 100 mls/hr Q24H IV ; Start 05/24/16 at 14:15; Status UNV Active Scripts Active Symbicort 160-4.5 Mcg Inhaler (Budesonide/Formoterol Fumarate) 10.2 Gm Hfa.aer.ad 2 Puff IH DAILY Proair Hfa Inhaler (Albuterol Sulfate) 8.5 Gm Hfa.aer.ad 1 Puff INH PRN Q6HRS PRN Reported Formula ( Vits W-Ca,Fe,Fa(<1MG)) 1 Each Tablet 1 Each PO Albuterol Sulfate Hfa Inhaler (Albuterol Sulfate) 8.5 Gm Hfa.aer.ad 2 Puff INH Q4HRS Vitals/I & O Vital Sign - Last 24 Hours 05/24/16 05/24/16 05/24/16 05/24/16 13:28 16:00 17:06 19:00 Temp 98.2 99.2 98.2 99.2 Pulse 97 112 Resp 20 18 B/P 119/8 123/72 Pulse Ox 96 95 O2 Delivery Nasal Cannula Room Air Nasal Cannula O2 Flow Rate 1.0 1.0 05/24/16 05/24/16 05/24/16 05/24/16 20:13 20:14 20:25 23:00 Temp 98.4 98.4 Pulse 86 Resp 18 B/P 138/95 Pulse Ox 95 O2 Delivery Room Air Room Air Nasal Cannula O2 Flow Rate 1.0 05/25/16 05/25/16 05/25/16 05/25/16 03:00 07:00 08:00 08:33 Temp 98.2 98.1 98.2 98.1 Pulse 90 68 Resp 18 18 B/P 131/81 129/74 Pulse Ox 95 98 96 O2 Delivery Room Air Room Air Room Air Intake and Output 05/24/16 05/24/16 05/25/16 15:00 23:00 07:00 Intake Total 950 ml 1220 ml 240 ml Balance 950 ml 1220 ml 240 ml CHIOMA SHERWOOD III DO May 25, 2016 11:24
[2016-05-25 15:00] VITALS: BP 130/70
[2016-05-25 19:00] VITALS: BP 118/81
--- NOTE | 2016-05-25 19:20 | PDOC ---
PULMONARY PROGRESS NOTES Subjective FEELS BETTER LESS SOA Vitals Vital Signs Date Time Temp Pulse Resp B/P Pulse Ox O2 Delivery O2 Flow Rate FiO2 05/25/16 15:33 98 Room Air 05/25/16 15:00 98.1 72 18 130/70 98.1 05/24/16 20:25 1.0 Comments ros, as mentioned as above, other sys otherwise neg General: Alert, No acute distress HEENT: Other (nc at, perrl, nose, inflamed mucosa) Lungs: Clear Cardiovascular: S1 Abdomen: Soft Neuro Exam: Alert, Oriented Extremities: No Edema Labs Laboratory Tests Test 05/24/16 05:10 05/25/16 06:40 White Blood Count 22.0x10^3/uL (4.0-11.0) 17.9x10^3/uL (4.0-11.0) Red Blood Count 4.92x10^6/uL (3.50-5.40) 4.67x10^6/uL (3.50-5.40) Hemoglobin 12.1g/dL (12.0-15.5) 11.6g/dL (12.0-15.5) Hematocrit 39.1% (36.0-47.0) 37.0% (36.0-47.0) Mean Corpuscular Volume 80fL (79-100) 79fL (79-100) Mean Corpuscular Hemoglobin 25pg (25-35) 25pg (25-35) Mean Corpuscular Hemoglobin Concent 31g/dL (31-37) 31g/dL (31-37) Red Cell Distribution Width 17.0% (11.5-14.5) 17.1% (11.5-14.5) Platelet Count 215x10^3/uL (140-400) 213x10^3/uL (140-400) Neutrophils (%) (Auto) 91% (31-73) 86% (31-73) Lymphocytes (%) (Auto) 5% (24-48) 9% (24-48) Monocytes (%) (Auto) 4% (0-9) 5% (0-9) Eosinophils (%) (Auto) 0% (0-3) 0% (0-3) Basophils (%) (Auto) 0% (0-3) 0% (0-3) Neutrophils # (Auto) 20.0x10^3uL (1.8-7.7) 15.3x10^3uL (1.8-7.7) Lymphocytes # (Auto) 1.1x10^3/uL (1.0-4.8) 1.6x10^3/uL (1.0-4.8) Monocytes # (Auto) 1.0x10^3/uL (0.0-1.1) 1.0x10^3/uL (0.0-1.1) Eosinophils # (Auto) 0.0x10^3/uL (0.0-0.7) 0.0x10^3/uL (0.0-0.7) Basophils # (Auto) 0.0x10^3/uL (0.0-0.2) 0.0x10^3/uL (0.0-0.2) Sodium Level 136mmol/L (136-145) 140mmol/L (136-145) Potassium Level 4.4mmol/L (3.5-5.1) 4.4mmol/L (3.5-5.1) Chloride Level 104mmol/L (98-107) 107mmol/L (98-107) Carbon Dioxide Level 22mmol/L (21-32) 24mmol/L (21-32) Anion Gap 10 (6-14) 9 (6-14) Blood Urea Nitrogen 10mg/dL (7-20) 13mg/dL (7-20) Creatinine 0.7mg/dL (0.6-1.0) 0.7mg/dL (0.6-1.0) Estimated GFR (Cockcroft-Gault) 122.4 122.4 Glucose Level 120mg/dL (70-99) 110mg/dL (70-99) Calcium Level 9.1mg/dL (8.5-10.1) 9.1mg/dL (8.5-10.1) Laboratory Tests Test 05/25/16 06:40 White Blood Count 17.9x10^3/uL (4.0-11.0) Red Blood Count 4.67x10^6/uL (3.50-5.40) Hemoglobin 11.6g/dL (12.0-15.5) Hematocrit 37.0% (36.0-47.0) Mean Corpuscular Volume 79fL (79-100) Mean Corpuscular Hemoglobin 25pg (25-35) Mean Corpuscular Hemoglobin Concent 31g/dL (31-37) Red Cell Distribution Width 17.1% (11.5-14.5) Platelet Count 213x10^3/uL (140-400) Neutrophils (%) (Auto) 86% (31-73) Lymphocytes (%) (Auto) 9% (24-48) Monocytes (%) (Auto) 5% (0-9) Eosinophils (%) (Auto) 0% (0-3) Basophils (%) (Auto) 0% (0-3) Neutrophils # (Auto) 15.3x10^3uL (1.8-7.7) Lymphocytes # (Auto) 1.6x10^3/uL (1.0-4.8) Monocytes # (Auto) 1.0x10^3/uL (0.0-1.1) Eosinophils # (Auto) 0.0x10^3/uL (0.0-0.7) Basophils # (Auto) 0.0x10^3/uL (0.0-0.2) Sodium Level 140mmol/L (136-145) Potassium Level 4.4mmol/L (3.5-5.1) Chloride Level 107mmol/L (98-107) Carbon Dioxide Level 24mmol/L (21-32) Anion Gap 9 (6-14) Blood Urea Nitrogen 13mg/dL (7-20) Creatinine 0.7mg/dL (0.6-1.0) Estimated GFR (Cockcroft-Gault) 122.4 Glucose Level 110mg/dL (70-99) Calcium Level 9.1mg/dL (8.5-10.1) Medications Active Scripts Medications Dose Route/Sig Days Date Category Symbicort 160-4.5 Mcg Inhaler (Budesonide/Formoterol Fumarate) 10.2 Gm Hfa.aer.ad 2 Puff IH DAILY 05/08/16 Rx Proair Hfa Inhaler (Albuterol Sulfate) 8.5 Gm Hfa.aer.ad 1 Puff INH PRN Q6HRS PRN 04/15/16 Rx Formula ( Vits W-Ca,Fe,Fa(<1MG)) 1 Each Tablet 1 Each PO 06/11/14 Reported Albuterol Sulfate Hfa Inhaler (Albuterol Sulfate) 8.5 Gm Hfa.aer.ad 2 Puff INH Q4HRS 06/11/14 Reported Comments cxr reviewed, no infilt Impression . IMPRESSION: 1. Acute hypoxemic respiratory failure, multifactorial in etiology. 2. Acute exacerbation of chronic obstructive pulmonary disease. 3. Acute bronchitis. 4. Asthma. 5. Tachycardia. 6. Leukocytosis. 7. Allergic rhinitis. Plan . PT FEELS BETTER OK TO D/C HOME IN AM NEEDS STEROID INHALER THANKS SUNNI WILSON MD May 25, 2016 19:20
[2016-05-25] MEDS: CEFPODOXIME PROXETIL 200 MG TABLET PO SCH (20:37)
[2016-05-25] MEDS: MONTELUKAST SODIUM 10 MG TABLET. PO SCH (20:37)
[2016-05-25 23:21] VITALS: BP 135/92
[2016-05-26 03:00] VITALS: BP 122/78
--- NOTE | 2016-05-26 06:10 | PDOC ---
PULMONARY PROGRESS NOTES Subjective FEELS BETTER LESS SOA Vitals Vital Signs Date Time Temp Pulse Resp B/P Pulse Ox O2 Delivery O2 Flow Rate FiO2 05/26/16 03:00 97.9 93 20 122/78 95 Room Air 1.0 97.9 Comments ros, as mentioned as above, other sys otherwise neg General: Alert, No acute distress HEENT: Other (nc at, perrl, nose, inflamed mucosa) Lungs: Clear Cardiovascular: S1 Abdomen: Soft Neuro Exam: Alert, Oriented Extremities: No Edema Labs Laboratory Tests Test 05/25/16 06:40 White Blood Count 17.9x10^3/uL (4.0-11.0) Red Blood Count 4.67x10^6/uL (3.50-5.40) Hemoglobin 11.6g/dL (12.0-15.5) Hematocrit 37.0% (36.0-47.0) Mean Corpuscular Volume 79fL (79-100) Mean Corpuscular Hemoglobin 25pg (25-35) Mean Corpuscular Hemoglobin Concent 31g/dL (31-37) Red Cell Distribution Width 17.1% (11.5-14.5) Platelet Count 213x10^3/uL (140-400) Neutrophils (%) (Auto) 86% (31-73) Lymphocytes (%) (Auto) 9% (24-48) Monocytes (%) (Auto) 5% (0-9) Eosinophils (%) (Auto) 0% (0-3) Basophils (%) (Auto) 0% (0-3) Neutrophils # (Auto) 15.3x10^3uL (1.8-7.7) Lymphocytes # (Auto) 1.6x10^3/uL (1.0-4.8) Monocytes # (Auto) 1.0x10^3/uL (0.0-1.1) Eosinophils # (Auto) 0.0x10^3/uL (0.0-0.7) Basophils # (Auto) 0.0x10^3/uL (0.0-0.2) Sodium Level 140mmol/L (136-145) Potassium Level 4.4mmol/L (3.5-5.1) Chloride Level 107mmol/L (98-107) Carbon Dioxide Level 24mmol/L (21-32) Anion Gap 9 (6-14) Blood Urea Nitrogen 13mg/dL (7-20) Creatinine 0.7mg/dL (0.6-1.0) Estimated GFR (Cockcroft-Gault) 122.4 Glucose Level 110mg/dL (70-99) Calcium Level 9.1mg/dL (8.5-10.1) Laboratory Tests Test 05/25/16 06:40 White Blood Count 17.9x10^3/uL (4.0-11.0) Red Blood Count 4.67x10^6/uL (3.50-5.40) Hemoglobin 11.6g/dL (12.0-15.5) Hematocrit 37.0% (36.0-47.0) Mean Corpuscular Volume 79fL (79-100) Mean Corpuscular Hemoglobin 25pg (25-35) Mean Corpuscular Hemoglobin Concent 31g/dL (31-37) Red Cell Distribution Width 17.1% (11.5-14.5) Platelet Count 213x10^3/uL (140-400) Neutrophils (%) (Auto) 86% (31-73) Lymphocytes (%) (Auto) 9% (24-48) Monocytes (%) (Auto) 5% (0-9) Eosinophils (%) (Auto) 0% (0-3) Basophils (%) (Auto) 0% (0-3) Neutrophils # (Auto) 15.3x10^3uL (1.8-7.7) Lymphocytes # (Auto) 1.6x10^3/uL (1.0-4.8) Monocytes # (Auto) 1.0x10^3/uL (0.0-1.1) Eosinophils # (Auto) 0.0x10^3/uL (0.0-0.7) Basophils # (Auto) 0.0x10^3/uL (0.0-0.2) Sodium Level 140mmol/L (136-145) Potassium Level 4.4mmol/L (3.5-5.1) Chloride Level 107mmol/L (98-107) Carbon Dioxide Level 24mmol/L (21-32) Anion Gap 9 (6-14) Blood Urea Nitrogen 13mg/dL (7-20) Creatinine 0.7mg/dL (0.6-1.0) Estimated GFR (Cockcroft-Gault) 122.4 Glucose Level 110mg/dL (70-99) Calcium Level 9.1mg/dL (8.5-10.1) Medications Active Scripts Medications Dose Route/Sig Days Date Category Symbicort 160-4.5 Mcg Inhaler (Budesonide/Formoterol Fumarate) 10.2 Gm Hfa.aer.ad 2 Puff IH DAILY 05/08/16 Rx Proair Hfa Inhaler (Albuterol Sulfate) 8.5 Gm Hfa.aer.ad 1 Puff INH PRN Q6HRS PRN 04/15/16 Rx Formula ( Vits W-Ca,Fe,Fa(<1MG)) 1 Each Tablet 1 Each PO 06/11/14 Reported Albuterol Sulfate Hfa Inhaler (Albuterol Sulfate) 8.5 Gm Hfa.aer.ad 2 Puff INH Q4HRS 06/11/14 Reported Comments cxr reviewed, no infilt Impression . IMPRESSION: 1. Acute hypoxemic respiratory failure, multifactorial in etiology. 2. Acute exacerbation of chronic obstructive pulmonary disease. 3. Acute bronchitis. 4. Asthma. 5. Tachycardia. 6. Leukocytosis. 7. Allergic rhinitis. Plan . TAPER PRED AND DOXY OK TO D/C HOME FOLLOW UP IN MY OFFICE IN 2-4 WEEKS THANKS SUNNI WILSON MD May 26, 2016 06:10
[2016-05-26 07:00] VITALS: BP 121/81
[2016-05-26] MEDS: IPRATRPIUM/ALBUTEROL 0.5/2.5MG 3 ML NEBU. NEB SCH (07:32)
[2016-05-26] MEDS: methylPREDNISolone SOD SUCC PF 40 MG/ML VIAL. IV SCH (07:34)
[2016-05-26] MEDS: CEFPODOXIME PROXETIL 200 MG TABLET PO SCH (08:38)
[2016-05-26] MEDS: PANTOPRAZOLE 40 MG TABLET. PO SCH (08:38)
[2016-05-26] MEDS: FLUTICASONE 50MCG/NASAL SPRAY 16GM BOTTLE. NS SCH (08:38)
[2016-05-26 09:06] LABS: BASO % 0 % (0-3); EOS % 0 % (0-3); HEMATOCRIT 40.3 % (36.0-47.0); HEMOGLOBIN 12.5 g/dL (12.0-15.5); LYMPH # 1.4 x10^3/uL (1.0-4.8); LYMPH % 8 % (24-48); MEAN CORPUSCULAR HEMOGLOBIN 25 pg (25-35); MEAN CORPUSCULAR HGB CONC 31 g/dL (31-37); MEAN CORPUSCULAR VOLUME 79 fL (79-100); MONO % 4 % (0-9); NEUT % 88 % (31-73); PLATELET COUNT 244 x10^3/uL (140-400); RED BLOOD COUNT 5.08 x10^6/uL (3.50-5.40); RED CELL DISTRIBUTION WIDTH 16.8 % (11.5-14.5); WHITE BLOOD COUNT 17.9 x10^3/uL (4.0-11.0)
[2016-05-26 09:35] LABS: CALCIUM 8.8 mg/dL (8.5-10.1); CREATININE 0.7 mg/dL (0.6-1.0); GFR 122.4; POTASSIUM 3.6 mmol/L (3.5-5.1)
[2016-05-26 11:07] VITALS: BP 125/80
--- NOTE | 2016-05-26 11:18 | PDOC ---
PROGRESS NOTES Chief Complaint Chief Complaint 1. Acute hypoxemic respiratory failure, multifactorial in etiology. 2. Acute exacerbation of chronic obstructive pulmonary disease. 3. Acute bronchitis. 4. Asthma. 5. Tachycardia. 6. Leukocytosis. 7. Allergic rhinitis. History of Present Illness History of Present Illness Patient awake, alert, and sitting up in bed when seen this AM. Pt states that she is feeling "much better" then yesterday. Pt wants to go home today. Pt denies any current SOB, CP, or wheezing. Discussed need for compliance with home medications. All questions and concerns answered and addressed. Vitals Vitals Vital Signs Date Time Temp Pulse Resp B/P Pulse Ox O2 Delivery O2 Flow Rate FiO2 05/26/16 11:07 98.2 107 18 125/80 99 Room Air 98.2 05/26/16 03:00 1.0 Physical Exam General: Alert, Oriented X3, Cooperative, No acute distress Heart: Regular rate, Normal S1, Normal S2, No murmurs Lungs: Clear Abdomen: Normal bowel sounds, Soft, No tenderness, No hepatosplenomegaly Extremities: No clubbing, No cyanosis, No edema, Normal pulses Skin: No rashes, No breakdown, No significant lesion Labs LABS Laboratory Tests Test 05/26/16 08:50 05/26/16 08:57 Sodium Level 137mmol/L (136-145) Potassium Level 3.6mmol/L (3.5-5.1) Chloride Level 102mmol/L (98-107) Carbon Dioxide Level 23mmol/L (21-32) Anion Gap 12 (6-14) Blood Urea Nitrogen 11mg/dL (7-20) Creatinine 0.7mg/dL (0.6-1.0) Estimated GFR (Cockcroft-Gault) 122.4 Glucose Level 209mg/dL (70-99) Calcium Level 8.8mg/dL (8.5-10.1) White Blood Count 17.9x10^3/uL (4.0-11.0) Red Blood Count 5.08x10^6/uL (3.50-5.40) Hemoglobin 12.5g/dL (12.0-15.5) Hematocrit 40.3% (36.0-47.0) Mean Corpuscular Volume 79fL (79-100) Mean Corpuscular Hemoglobin 25pg (25-35) Mean Corpuscular Hemoglobin Concent 31g/dL (31-37) Red Cell Distribution Width 16.8% (11.5-14.5) Platelet Count 244x10^3/uL (140-400) Neutrophils (%) (Auto) 88% (31-73) Lymphocytes (%) (Auto) 8% (24-48) Monocytes (%) (Auto) 4% (0-9) Eosinophils (%) (Auto) 0% (0-3) Basophils (%) (Auto) 0% (0-3) Neutrophils # (Auto) 15.7x10^3uL (1.8-7.7) Lymphocytes # (Auto) 1.4x10^3/uL (1.0-4.8) Monocytes # (Auto) 0.8x10^3/uL (0.0-1.1) Eosinophils # (Auto) 0.0x10^3/uL (0.0-0.7) Basophils # (Auto) 0.0x10^3/uL (0.0-0.2) Review of Systems Review of Systems Patient complaint of hunger Patient complaint of fatigue Assessment and Plan Assessmemt and Plan Problems Medical Problems: (1) Asthma exacerbation Status: Acute Assessment: 1. Acute hypoxemic respiratory failure, multifactorial in etiology. 2. Acute exacerbation of chronic obstructive pulmonary disease. 3. Acute bronchitis. 4. Asthma. 5. Tachycardia. 6. Leukocytosis. 7. Allergic rhinitis. Plan: Continue to monitor the patient per floor protocol Continue home meds Daily labs Breathing treatments PRN IV steroids to PO Home with Medrol dose pack Possible DC later this afternoon Appreciate all subspecialty input and evaluation Problems: Comment Review of Relevant I have reviewed the following items elizabet (where applicable) has been applied. Labs Laboratory Tests Test 05/25/16 06:40 05/26/16 08:50 05/26/16 08:57 White Blood Count 17.9x10^3/uL (4.0-11.0) 17.9x10^3/uL (4.0-11.0) Red Blood Count 4.67x10^6/uL (3.50-5.40) 5.08x10^6/uL (3.50-5.40) Hemoglobin 11.6g/dL (12.0-15.5) 12.5g/dL (12.0-15.5) Hematocrit 37.0% (36.0-47.0) 40.3% (36.0-47.0) Mean Corpuscular Volume 79fL (79-100) 79fL (79-100) Mean Corpuscular Hemoglobin 25pg (25-35) 25pg (25-35) Mean Corpuscular Hemoglobin Concent 31g/dL (31-37) 31g/dL (31-37) Red Cell Distribution Width 17.1% (11.5-14.5) 16.8% (11.5-14.5) Platelet Count 213x10^3/uL (140-400) 244x10^3/uL (140-400) Neutrophils (%) (Auto) 86% (31-73) 88% (31-73) Lymphocytes (%) (Auto) 9% (24-48) 8% (24-48) Monocytes (%) (Auto) 5% (0-9) 4% (0-9) Eosinophils (%) (Auto) 0% (0-3) 0% (0-3) Basophils (%) (Auto) 0% (0-3) 0% (0-3) Neutrophils # (Auto) 15.3x10^3uL (1.8-7.7) 15.7x10^3uL (1.8-7.7) Lymphocytes # (Auto) 1.6x10^3/uL (1.0-4.8) 1.4x10^3/uL (1.0-4.8) Monocytes # (Auto) 1.0x10^3/uL (0.0-1.1) 0.8x10^3/uL (0.0-1.1) Eosinophils # (Auto) 0.0x10^3/uL (0.0-0.7) 0.0x10^3/uL (0.0-0.7) Basophils # (Auto) 0.0x10^3/uL (0.0-0.2) 0.0x10^3/uL (0.0-0.2) Sodium Level 140mmol/L (136-145) 137mmol/L (136-145) Potassium Level 4.4mmol/L (3.5-5.1) 3.6mmol/L (3.5-5.1) Chloride Level 107mmol/L (98-107) 102mmol/L (98-107) Carbon Dioxide Level 24mmol/L (21-32) 23mmol/L (21-32) Anion Gap 9 (6-14) 12 (6-14) Blood Urea Nitrogen 13mg/dL (7-20) 11mg/dL (7-20) Creatinine 0.7mg/dL (0.6-1.0) 0.7mg/dL (0.6-1.0) Estimated GFR (Cockcroft-Gault) 122.4 122.4 Glucose Level 110mg/dL (70-99) 209mg/dL (70-99) Calcium Level 9.1mg/dL (8.5-10.1) 8.8mg/dL (8.5-10.1) Laboratory Tests Test 05/26/16 08:50 05/26/16 08:57 Sodium Level 137mmol/L (136-145) Potassium Level 3.6mmol/L (3.5-5.1) Chloride Level 102mmol/L (98-107) Carbon Dioxide Level 23mmol/L (21-32) Anion Gap 12 (6-14) Blood Urea Nitrogen 11mg/dL (7-20) Creatinine 0.7mg/dL (0.6-1.0) Estimated GFR (Cockcroft-Gault) 122.4 Glucose Level 209mg/dL (70-99) Calcium Level 8.8mg/dL (8.5-10.1) White Blood Count 17.9x10^3/uL (4.0-11.0) Red Blood Count 5.08x10^6/uL (3.50-5.40) Hemoglobin 12.5g/dL (12.0-15.5) Hematocrit 40.3% (36.0-47.0) Mean Corpuscular Volume 79fL (79-100) Mean Corpuscular Hemoglobin 25pg (25-35) Mean Corpuscular Hemoglobin Concent 31g/dL (31-37) Red Cell Distribution Width 16.8% (11.5-14.5) Platelet Count 244x10^3/uL (140-400) Neutrophils (%) (Auto) 88% (31-73) Lymphocytes (%) (Auto) 8% (24-48) Monocytes (%) (Auto) 4% (0-9) Eosinophils (%) (Auto) 0% (0-3) Basophils (%) (Auto) 0% (0-3) Neutrophils # (Auto) 15.7x10^3uL (1.8-7.7) Lymphocytes # (Auto) 1.4x10^3/uL (1.0-4.8) Monocytes # (Auto) 0.8x10^3/uL (0.0-1.1) Eosinophils # (Auto) 0.0x10^3/uL (0.0-0.7) Basophils # (Auto) 0.0x10^3/uL (0.0-0.2) Microbiology 05/23/16 Blood Culture - Preliminary, Resulted NO GROWTH AFTER 3 DAYS 05/23/16 Gram Stain - Final, Complete Medications Current Medications Albuterol/ Ipratropium (Duoneb) 3 ml 1X ONCE NEB Last administered on 00:20; Start 05/23/16 at 00:15; Stop 05/23/16 at 00:16; Status DC Albuterol/ Ipratropium (Duoneb) 3 ml STK-MED ONCE .ROUTE ; Start 05/23/16 at 00: 16; Stop 05/23/16 at 00:17; Status DC Methylprednisolone Sodium Succinate (Solu-Medrol 125mg Vial) 125 mg 1X ONCE IV Last administered on 05/23/16 00:34; Start 05/23/16 at 00:30; Stop 05/23/16 at 00:31; Status DC Albuterol Sulfate 15 mg 15 mg 1X ONCE CONT NEB Last administered on 05/23/16 00:34; Start 05/23/16 at 00:30; Stop 05/23/16 at 00:31; Status DC Magnesium Sulfate/ Dextrose (Magnesium Sulfate PREMIX 2GM) 50 ml @ 25 mls/hr 1X ONCE IV Last administered on 05/23/16 00:35; Start 05/23/16 at 00:45; Stop 05/23/16 at 02:44; Status DC Epinephrine HCl (Adrenalin) 1 mg STK-MED ONCE .ROUTE ; Start 05/23/16 at 00:23; Stop 05/23/16 at 00:24; Status DC Lorazepam (Ativan) 1 mg 1X ONCE PO Last administered on 05/23/16 00:56; Start 05/23/16 at 01:00; Stop 05/23/16 at 01:01; Status DC Epinephrine HCl (Adrenalin) 0.3 mg 1X ONCE IM Last administered on 05/23/16 01:07; Start 05/23/16 at 01:15; Stop 05/23/16 at 01:16; Status DC Ondansetron HCl (Zofran) 4 mg PRN Q8HRS PRN IV NAUSEA/VOMITING; Start 05/23/16 at 02:00; Stop 05/24/16 at 01:59; Status DC Morphine Sulfate 2 mg PRN Q2HR PRN IV PAIN; Start 05/23/16 at 02:00; Stop 05/24 at 01:59; Status DC Albuterol/ Ipratropium (Duoneb) 3 ml 1X ONCE NEB Last administered on 09:05; Start 05/23/16 at 09:00; Stop 05/23/16 at 09:01; Status DC Methylprednisolone Sodium Succinate 40 mg 40 mg Q8HRS IV Last administered on 07:34; Start 05/23/16 at 14:00 Ceftriaxone Sodium/Sodium Chloride (Rocephin/Iv Sodium Chloride 0.9% 50ml) 50 ml @ 100 mls/hr Q24H IV Last administered on 05/25/16 11:20; Start 05/23/16 at 11:00; Stop 05/25/16 at 16:55; Status DC Albuterol/ Ipratropium (Duoneb) 3 ml RTQID NEB Last administered on 05/26/16 07:32; Start 05/23/16 at 12:00 Budesonide (Pulmicort) 0.5 mg RTBID NEB Last administered on 05/25/16 20:11; Start 05/23/16 at 20:00 Enoxaparin Sodium (Lovenox 40mg Syringe) 40 mg Q24H SQ ; Start 05/23/16 at 11:00 Pantoprazole Sodium (Protonix) 40 mg DAILYAC PO Last administered on 05/26/16 08:38; Start 05/23/16 at 12:00 Montelukast Sodium (Singulair) 10 mg QHS PO Last administered on 05/25/16 20: 37; Start 05/23/16 at 21:00 Fluticasone Propionate (Flonase) 2 spray DAILY NS Last administered on 08:38; Start 05/24/16 at 10:00 Albuterol Sulfate (Ventolin Neb Soln) 2.5 mg PRN Q4HRS PRN NEB SHORTNESS OF BREATH; Start 05/24/16 at 14:15 Non-Formulary Medication 1 puff PRN Q6HRS PRN INH SHORTNESS OF BREATH; Start at 14:15; Status UNV Non-Formulary Medication 2 puff 2 puff DAILY IH ; Start 05/25/16 at 09:00; Status UNV Ceftriaxone Sodium/Sodium Chloride (Rocephin/Iv Sodium Chloride 0.9% 50ml) 50 ml @ 100 mls/hr Q24H IV ; Start 05/24/16 at 14:15; Status UNV Cefpodoxime Proxetil (Vantin) 200 mg BID PO Last administered on 05/26/16 08: 38; Start 05/25/16 at 21:00 Active Scripts Active Symbicort 160-4.5 Mcg Inhaler (Budesonide/Formoterol Fumarate) 10.2 Gm Hfa.aer.ad 2 Puff IH DAILY Proair Hfa Inhaler (Albuterol Sulfate) 8.5 Gm Hfa.aer.ad 1 Puff INH PRN Q6HRS PRN Reported Formula ( Vits W-Ca,Fe,Fa(<1MG)) 1 Each Tablet 1 Each PO Albuterol Sulfate Hfa Inhaler (Albuterol Sulfate) 8.5 Gm Hfa.aer.ad 2 Puff INH Q4HRS Vitals/I & O Vital Sign - Last 24 Hours 05/25/16 05/25/16 05/25/16 05/25/16 15:00 15:33 19:00 20:00 Temp 98.1 96.4 98.1 96.4 Pulse 72 Resp 18 B/P 130/70 118/81 Pulse Ox 98 98 O2 Delivery Room Air Room Air Room Air O2 Flow Rate 1.0 05/25/16 05/25/16 05/25/16 05/26/16 20:13 20:15 23:21 03:00 Temp 97.8 97.9 97.8 97.9 Pulse 84 93 Resp 18 20 B/P 135/92 122/78 Pulse Ox 98 98 98 95 O2 Delivery Room Air Room Air Room Air Room Air O2 Flow Rate 1.0 05/26/16 05/26/16 05/26/16 07:00 07:33 11:07 Temp 98.3 98.2 98.3 98.2 Pulse 92 107 Resp 18 18 B/P 121/81 125/80 Pulse Ox 97 98 99 O2 Delivery Room Air Room Air Room Air Intake and Output 05/25/16 05/25/16 05/26/16 15:00 23:00 07:00 Intake Total 240 ml 570 ml 600 ml Balance 240 ml 570 ml 600 ml CHIOMA SHERWOOD III DO May 26, 2016 11:17
--- NOTE | 2016-05-28 01:19 | RESP ---
DATE OF SERVICE: 05/25/2016 The patient underwent spirometry dated 05/25/2016. The FEV1 to FVC ratio was 70%, FEV1 was 2.58 liters, 89% of predicted. There was no significant bronchodilator response. IMPRESSION: Evidence of mild airway obstruction. SUNNI WILSON MD DR: SANJIV/yoli JOB#: [id number] / [id number]
--- NOTE | 2016-06-01 08:59 | DS ---
DATE OF DISCHARGE: 05/26/2016 ADMISSION DIAGNOSES: Respiratory failure with asthma. DISCHARGE DIAGNOSIS: Resolving respiratory failure. CONSULTS: Pulmonary Medicine. PROCEDURES: None. HOSPITAL COURSE: The patient is a pleasant 25-year-old female who presented with an asthma exacerbation. She was admitted. We gave her steroids, breathing treatments, oxygen, empiric antibiotics and consulted Pulmonary Medicine. She returned to baseline. We discharged home on Medrol Dosepak, Combivent metered dose inhaler, and Flovent. DISPOSITION: Home. ACTIVITY: As tolerated. DIET: Low sodium. MEDICATIONS: Please see the MRAD. TOTAL TIME ON DISCHARGE: 32 minutes. CHIOMA SHERWOOD DO DR: NIKI/yoli JOB#: [id number] / [id number]
== END 2016-05-26 11:40 | disposition home or self-care (01) | DRG 189 ==
LOC: ER 00:08 → 5 SOUTH 02:03
PROVIDERS: ADMIT Internal Medicine; ATTEND Internal Medicine
DX: J96.01 Acute respiratory failure with hypoxia (principal); J44.1 Chronic obstructive pulmonary disease with (acute) exacerbation; J45.901 Unspecified asthma with (acute) exacerbation; J44.0 Chronic obstructive pulmonary disease with (acute) lower respiratory infection; R65.10 Systemic inflammatory response syndrome (SIRS) of non-infectious origin without acute organ dysfunction; J20.9 Acute bronchitis, unspecified; Z83.3 Family history of diabetes mellitus
CPT/HCPCS: 36415; 71010; 80048; 81001; 84484; 85007; 85027; 87040; 87070; 87205; 87449; 93005; 94060; 94250; 94640; 94644; J0171; J0696; J2920; J2930; J7060; J7620; 99291-25

== ENCOUNTER 2016-09-07 12:45 | Emergency (ER) | payer SELFPAY ==
[~2016-09-07] VITALS: Ht 157.5 cm; Wt 59.9 kg
[2016-09-07 13:04] VITALS: BP 152/107
--- NOTE | 2016-09-07 13:19 | PHYS DOC ---
Past Medical History Past Medical History: Asthma Past Surgical History: No Surgical History Alcohol Use: Occasionally Drug Use: None Adult General Chief Complaint Chief Complaint: ASTHMA HPI HPI Patient is a 26 year old female presents to the emergency department stating that she's been having problems with her asthma for the last 2-3 days. She states that she's been using a nebulizer machine at home. She states that she ran out of her Symbicort approximately one week ago. She states that she has having shortness of air and wheezing throughout. She denies any history of smoking. Denies any fever, chills, or any nausea vomiting. Review of Systems Review of Systems Constitutional: Denies fever or chills [] Eyes: Denies change in visual acuity, redness, or eye pain [] HENT: Denies nasal congestion or sore throat [] Respiratory: Denies cough C/o shortness of breath with wheezing Cardiovascular: No additional information not addressed in HPI [] GI: Denies abdominal pain, nausea, vomiting, bloody stools or diarrhea [] : Denies dysuria or hematuria [] Musculoskeletal: Denies back pain or joint pain [] Integument: Denies rash or skin lesions [] Neurologic: Denies headache, focal weakness or sensory changes [] Endocrine: Denies polyuria or polydipsia [] Current Medications Current Medications Current Medications Medications (Trade) Dose Ordered Sig/Alex Start Time Stop Time Status Last Admin Dose Admin Albuterol/ Ipratropium (Duoneb) 3 ml 1X ONCE 09/07/16 13:30 09/07/16 13:31 DC 09/07/16 13:25 3 ML Prednisone (Prednisone) 40 mg 1X ONCE 09/07/16 13:30 09/07/16 13:31 DC 09/07/16 13:25 40 MG Allergies Allergies Allergies Coded Allergies Type Severity Reaction Last Updated Verified No Known Drug Allergies 08/28/14 No Physical Exam Physical Exam Constitutional: Well developed, well nourished, no acute distress, non-toxic appearance. [] HENT: Normocephalic, atraumatic, bilateral external ears normal, oropharynx moist, no oral exudates, nose normal. [] Eyes: PERRLA, EOMI, conjunctiva normal, no discharge. [] Neck: Normal range of motion, no tenderness, supple, no stridor. [] Cardiovascular:Heart rate regular rhythm, no murmur [] Lungs & Thorax: Bilateral breath sounds wheezes throughout Skin: Warm, dry, no erythema, no rash. [] Back: No tenderness Extremities: No tenderness, no cyanosis, no clubbing, ROM intact, no edema. [] Neurologic: Alert and oriented X 3, normal motor function, normal sensory function, no focal deficits noted. [] Psychologic: Affect normal, judgement normal, mood normal. [] Current Patient Data Vital Signs Vital Signs Date Time Temp Pulse Resp B/P (MAP) Pulse Ox O2 Delivery O2 Flow Rate FiO2 09/07/16 13:20 97 Room Air 09/07/16 13:04 99.3 110 24 152/107 (122) 99.3 EKG EKG [] Radiology/Procedures Radiology/Procedures [] Course & Med Decision Making Course & Med Decision Making Pertinent Labs and Imaging studies reviewed. (See chart for details) Patient was provided with a DuoNeb treatment here in the emergency department as well as prednisone. Patient's breath sounds are clear at this time. She will be discharged home with a prescription for prednisone and a rescue inhaler. She states she does have nebulizer treatments at home. Recommended her following up with her primary care physician for further evaluation. Patient is unable to provide the exact dosage of the Symbicort so this would not be filled for her here in the emergency department. Patient was provided with signs and symptoms to return to the emergency department. She'll be discharged home in stable condition. [] Dragon Disclaimer Dragon Disclaimer This electronic medical record was generated, in whole or in part, using a voice recognition dictation system. Departure Departure Impression: Primary Impression: Asthma exacerbation Disposition: 01 HOME, SELF-CARE Condition: STABLE Referrals: NO PCP (PCP) Patient Instructions: Asthma, Adult, [id number] Additional Instructions: Activity as tolerated. Medication as prescribed. Continue to use her nebulizer machine at home as needed for shortness of air difficulty breathing. You have also been provided with a prescription for a inhaler, this is your rescue inhaler use as directed Follow-up with your primary care physician for your prescription for your Symbicort. Return back to emergency prior signs symptoms of become worse. Scripts Albuterol Sulfate (PROAIR HFA INHALER) 8.5 Gm Hfa.aer.ad 1 PUFF INH PRN Q6HRS Y for SHORTNESS OF BREATH, #1 INHALER 0 Refills Prov: ENA JAMES APRN 09/07/16 Prednisone (PREDNISONE) 20 Mg Tablet 40 MG PO DAILY for 7 Days, #14 TAB Prov: ENA JAMES APRN 09/07/16 ENA JAMES APRN September 07, 2016 13:19
[2016-09-07] MEDS ORDERED: predniSONE 20 MG TABLET PO ONE (13:30)
[2016-09-07] MEDS ORDERED: IPRATRPIUM/ALBUTEROL 0.5/2.5MG 3 ML NEBU. NEB ONE (13:30)
[2016-09-07] MEDS ORDERED: PRED20TA PO (14:10)
[2016-09-07] MEDS ORDERED: PROAIR HFA8.5 GM INH (14:10)
== END 2016-09-07 14:14 | disposition home or self-care (01) ==
LOC: ER 12:45
DX: J45.901 Unspecified asthma with (acute) exacerbation (principal)
CPT/HCPCS: 94250; 94640; 99284; J7512; J7620

== ENCOUNTER 2017-02-20 02:00 | Emergency (ER) | payer SELFPAY ==
[~2017-02-20] VITALS: Ht 157.5 cm; Wt 62.6 kg
[~2017-02-20 02:00] MED LIST changes: +BUDE0.5A3 NEB; +METH4TAB2 PO; +PRED-220 PO
[2017-02-20] MEDS ORDERED: IPRATRPIUM/ALBUTEROL 0.5/2.5MG 3 ML NEBU. ONE (02:28)
[2017-02-20] MEDS ORDERED: IPRATRPIUM/ALBUTEROL 0.5/2.5MG 3 ML NEBU. NEB ONE (02:30)
[2017-02-20] MEDS ORDERED: ALBUTEROL SULFATE 2.5 MG/3 ML NEBU. CONT NEB ONE (02:30)
[2017-02-20] MEDS ORDERED: predniSONE 20 MG TABLET PO ONE (03:15)
--- NOTE | 2017-02-20 03:37 | PHYS DOC ---
Past Medical History Past Medical History: Asthma Past Surgical History: Other Additional Past Surgical Histo: trache as infant Alcohol Use: Occasionally Drug Use: None Adult General Chief Complaint Chief Complaint: ASTHMA HPI HPI Patient is a 26 year old female who presents with complaint of shortness of breath. Patient states that she has history of asthma. Patient was recently admitted the hospital for treatment of asthma exacerbation on February 14. The patient was discharged on February 15. Patient states that she was discharged with prescription for Medrol Dosepak. Patient states that she was unable to fill this due to cost rate patient states over the past few days her symptoms have been worsening again. Patient denies any associated fevers. Patient states that she has had worsening wheezing despite use of albuterol at home. Patient came to the emergency department as her breathing has become significantly labored at this time. The patient states that she feels her lack of use of steroids cause her symptoms to get worse. Patient states that she has tightness through her chest but denies any substernal chest pain. Patient also denies any nausea or vomiting. Review of Systems Review of Systems Constitutional: Denies fever or chills [] Eyes: Denies change in visual acuity, redness, or eye pain [] HENT: Denies nasal congestion or sore throat [] Respiratory: Wheezing, shortness of breath, cough[] Cardiovascular: Denies chest pain or edema[] GI: Denies abdominal pain, nausea, vomiting, bloody stools or diarrhea [] : Denies dysuria or hematuria [] Musculoskeletal: Denies back pain or joint pain [] Integument: Denies rash or skin lesions [] Neurologic: Denies headache, focal weakness or sensory changes [] All other systems were reviewed and found to be within normal limits, except as documented in this note. Current Medications Current Medications Current Medications Medications (Trade) Dose Ordered Sig/Alex Start Time Stop Time Status Last Admin Dose Admin Albuterol Sulfate (Ventolin Neb Soln) 7.5 mg 1X ONCE 02/20/17 02:30 02/20/17 02:43 DC 02/20/17 02:35 7.5 MG Albuterol/ Ipratropium (Duoneb) 3 ml STK-MED ONCE 02/20/17 02:28 02/20/17 02:29 DC Prednisone (Prednisone) 50 mg 1X ONCE 02/20/17 03:15 02/20/17 03:16 DC 02/20/17 03:01 50 MG Allergies Allergies Allergies Coded Allergies Type Severity Reaction Last Updated Verified No Known Drug Allergies 08/28/14 No Physical Exam Physical Exam Constitutional: Alert, afebrile, appears in moderate respiratory distress. [] HENT: Normocephalic, atraumatic, bilateral external ears normal, oropharynx moist, no oral exudates, nose normal. [] Eyes: PERRLA, EOMI, conjunctiva normal, no discharge. [] Neck: Normal range of motion, no tenderness, supple, no stridor. [] Cardiovascular: Tachycardia, regular rhythm, no murmur [] Lungs & Thorax: Moderately restricted air movement bilaterally, expiratory wheezes bilaterally, prolonged expiratory phase[] Abdomen: Bowel sounds normal, soft, no tenderness, no masses, no pulsatile masses. [] Skin: Warm, dry, no erythema, no rash. [] Back: No tenderness, no CVA tenderness. [] Extremities: No tenderness, no cyanosis, no clubbing, ROM intact, no edema. [] Neurologic: Alert and oriented X 3, normal motor function, normal sensory function, no focal deficits noted. [] Current Patient Data Vital Signs Vital Signs Date Time Temp Pulse Resp B/P (MAP) Pulse Ox O2 Delivery O2 Flow Rate FiO2 02/20/17 03:32 128 31 153/103 (120) 94 Room Air 02/20/17 02:20 98.9 98.9 EKG EKG Rhythm strip interpretation by me: Heart rate 114, sinus tachycardia, no ectopy[ ] Radiology/Procedures Radiology/Procedures Not performed[] Course & Med Decision Making Course & Med Decision Making Pertinent Labs and Imaging studies reviewed. (See chart for details) Patient was given a continuous nebulized treatment with one unit dose of DuoNeb and 3 unit doses of albuterol area patient also given oral prednisone in the emergency department. On reevaluation, the patient's air movement has improved significantly and patient appears more comfortable at this time. Patient states that she feels well enough that she would like to go home. The patient will be prescribed prednisone and I urged the patient to get this filled. Patient states that she will be able to get it filled as she feels that she can afford this medication instead of the Medrol Dosepak. Advised continued use of albuterol inhaler to 4 puffs every 4 hours as needed. Recommended follow-up with primary doctor in 3-5 days for reevaluation and return emergency department for any worsening symptoms. Patient voiced understanding and in agreement with treatment plan. Dragon Disclaimer Dragon Disclaimer This electronic medical record was generated, in whole or in part, using a voice recognition dictation system. Departure Departure Impression: Primary Impression: Acute asthma exacerbation Disposition: HOME, SELF-CARE Condition: IMPROVED Referrals: NO PCP (PCP) Patient Instructions: Asthma, Adult Additional Instructions: Follow-up with your primary doctor in 3-5 days for reevaluation. Return to the emergency department for any worsening symptoms. Scripts Prednisone (PREDNISONE) 10 Mg Tablet 50 MG PO DAILY, #20 TAB Prov: GLENN GANN MD 02/20/17 Problem Qualifiers Primary Impression: Acute asthma exacerbation Asthma severity: moderate Asthma persistence: persistent Qualified Codes: J45.41 - Moderate persistent asthma with (acute) exacerbation GLENN GANN MD Feb 20, 2017 03:37
[2017-02-20 04:16] VITALS: BP 135/87
[2017-02-20] MEDS ORDERED: PRED-220 PO (04:19)
== END 2017-02-20 04:34 | disposition home or self-care (01) ==
LOC: ER 02:00
DX: J45.41 Moderate persistent asthma with (acute) exacerbation (principal); Z79.899 Other long term (current) drug therapy
CPT/HCPCS: 94640; 99285; J7512; J7613; J7620; 94644

== ENCOUNTER 2018-07-12 21:56 | Inpatient (IN) | payer SELFPAY ==
[~2018-07-12] VITALS: Ht 157.5 cm; Wt 44.1 kg
[~2018-07-12 21:56] MED LIST changes: +ALBU2.5V8 INH; -PROAIR HFA8.5 GM INH
[2018-07-12 22:14] LABS: BASO # 0.1 x10^3/uL (0.0-0.2); BASO % 1 % (0-3); EOS # 2.6 x10^3/uL (0.0-0.7); EOS % 19 % (0-3); HEMATOCRIT 40.8 % (36.0-47.0); HEMOGLOBIN 13.2 g/dL (12.0-15.5); LYMPH # 2.6 x10^3/uL (1.0-4.8); LYMPH % 19 % (24-48); MEAN CORPUSCULAR HEMOGLOBIN 26 pg (25-35); MEAN CORPUSCULAR HGB CONC 32 g/dL (31-37); MEAN CORPUSCULAR VOLUME 80 fL (79-100); MONO # 0.7 x10^3/uL (0.0-1.1); MONO % 5 % (0-9); NEUT # 7.5 x10^3uL (1.8-7.7); NEUT % 56 % (31-73); PLATELET COUNT 270 x10^3/uL (140-400); RED BLOOD COUNT 5.08 x10^6/uL (3.50-5.40); RED CELL DISTRIBUTION WIDTH 19.3 % (11.5-14.5); WHITE BLOOD COUNT 13.6 x10^3/uL (4.0-11.0)
[2018-07-12 22:20] LABS: CALCIUM 8.9 mg/dL (8.5-10.1); CREATININE 0.7 mg/dL (0.6-1.0); GFR 120.6; POTASSIUM 3.7 mmol/L (3.5-5.1)
[2018-07-12 22:26] LABS: ALBUMIN 4.1 g/dL (3.4-5.0); ALBUMIN/GLOBULIN RATIO 0.9 (1.0-1.7); TOTAL BILIRUBIN 0.1 mg/dL (0.2-1.0); TOTAL PROTEIN 8.7 g/dL (6.4-8.2)
[2018-07-12] MEDS ORDERED: methylPREDNISolone SOD SUCC PF 125 MG/2 ML VIAL. IV ONE (22:30)
[2018-07-12] MEDS ORDERED: IV NORMAL SALINE 500ML BAG 500 ML IV ONE (22:30)
--- NOTE | 2018-07-12 22:31 | RAD ---
Indication:SOA TECHNIQUE:Portable AP chest X-ray COMPARISON:03/13/2017 FINDINGS: Heart is normal in size. Lungs are clear of focal consolidation. Prominent bilateral bronchial markings are seen. No pneumothorax or pleural effusion. Visualized bony thorax within normal limits. IMPRESSION: Prominent bilateral bronchovascular markings may be secondary to bronchitis. Clinically correlate. Electronically signed by: Roscoe Dorado DO (07/12/2018 10:28 PM) [facility]
[2018-07-12 22:44] LABS: % BASOS 2 % (0-3); % EOS 17 % (0-5); % LYMPHS 27 % (24-48); % MONOS 3 % (0-10); % SEGS 51 % (35-66)
[2018-07-12 22:45] LABS: PLT ESTIMATE ADEQUATE (ADEQUATE)
[2018-07-12] MEDS ORDERED: IPRATRPIUM/ALBUTEROL 0.5/2.5MG 3 ML NEBU. NEB ONE (23:00)
[2018-07-13] VITALS (7 sets, daily range): BP systolic 132–153; BP diastolic 86–97
--- NOTE | 2018-07-13 00:38 | PHYS DOC ---
Past Medical History Past Medical History: Anxiety, Asthma (RONALD BUSH APRN) Past Surgical History: Other Additional Past Surgical Histo: trache as infant (RONALD BUSH APRN) Alcohol Use: Occasionally Drug Use: Marijuana (RONALD BUSH APRN) Adult General Chief Complaint Chief Complaint: SHORTNESS OF BREATH HPI HPI 27-year-old female presents to ER via EMS with complaints of increased shortness of air. She reports she has been in the hosp. multiple times for respiratory failure and has had to be intubated. 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 On arrival pt is anxious with rapid resp. She denies others in family w/similar illness. She reports she has had decreased appetite denying N/V/D. She reports she has had prod. cough. Denies fever, CP, abd pain, sore throat, or urinary sxs. She reports hx of asthma. (RONALD BUSH APRN) Review of Systems Review of Systems Constitutional: Denies fever or chills [] Eyes: Denies change in visual acuity, redness, or eye pain [] HENT: Denies nasal congestion or sore throat [] Respiratory: Reports prod. cough with SOA Cardiovascular: Denies CP GI: Denies abdominal pain, nausea, vomiting, bloody stools or diarrhea [] : Denies dysuria or hematuria [] Musculoskeletal: Denies back pain or joint pain [] Integument: Denies rash, swelling or skin lesions [] Neurologic: Denies headache, focal weakness or sensory changes [] Psych: Reports anxiety w/hx of All other systems were reviewed and found to be within normal limits, except as documented in this note. (RONALD BUSH APRN) Current Medications Current Medications Current Medications Medications (Trade) Dose Ordered Sig/Alex Start Time Stop Time Status Last Admin Dose Admin Albuterol/ Ipratropium (Duoneb) 3 ml 1X ONCE 07/12/18 23:00 07/12/18 23:01 DC 07/12/18 22:02 3 ML Lorazepam (Ativan) 0.5 mg 1X ONCE 07/12/18 23:15 07/12/18 23:16 DC 07/12/18 23:09 0.5 MG Methylprednisolone Sodium Succinate (SOLU-Medrol 125MG VIAL) 125 mg 1X ONCE 07/12/18 22:30 07/12/18 22:31 DC 07/12/18 22:34 125 MG Sodium Chloride 500 ml @ 500 mls/hr 1X ONCE 07/12/18 22:30 07/12/18 23:29 DC 07/12/18 22:34 500 MLS/HR (RAINE POTTS DO) Allergies Allergies Allergies Coded Allergies Type Severity Reaction Last Updated Verified No Known Drug Allergies 08/28/14 No (RAINE POTTS DO) Physical Exam Physical Exam Constitutional: Well developed, thin physique, moderate distress, non-toxic appearance. [] HENT: Normocephalic, atraumatic, bilateral ears normal, mucous membranes pink/ dry, no oral exudates, nose normal. [] Eyes: Pupils equal, conjunctiva normal, no discharge. [] Neck: Normal range of motion, no tenderness, supple, no stridor. Trachea midline Cardiovascular: Tachycardic heart rate regular rhythm, no murmur [] Lungs & Thorax: Decreased air movement in lung loco with less air movement in bases- expiratory wheezing bilat. upper lobes. Rapid resp. Pt is able to speak in full sentences Abdomen: Bowel sounds normal, soft, no tenderness Skin: Warm, dry, no erythema, no rash. [] Back: No tenderness, no CVA tenderness. [] Extremities: No tenderness, no cyanosis, no clubbing, ROM intact, no edema. [] Neurologic: Alert and oriented X 3, normal motor function, normal sensory function, no focal deficits noted. [] Psychologic: Affect normal, judgement normal, anxious/restless during initial exam (RONALD BUSH APRN) Current Patient Data Vital Signs Vital Signs Date Time Temp Pulse Resp B/P (MAP) Pulse Ox O2 Delivery O2 Flow Rate FiO2 07/12/18 23:00 127 137/89 (105) 96 07/12/18 22:07 98.6 26 Room Air 98.6 (RAINE POTTS DO) Lab Values Laboratory Tests Test 07/12/18 22:00 White Blood Count 13.6 x10^3/uL (4.0-11.0) H Red Blood Count 5.08 x10^6/uL (3.50-5.40) Hemoglobin 13.2 g/dL (12.0-15.5) Hematocrit 40.8 % (36.0-47.0) Mean Corpuscular Volume 80 fL (79-100) Mean Corpuscular Hemoglobin 26 pg (25-35) Mean Corpuscular Hemoglobin Concent 32 g/dL (31-37) Red Cell Distribution Width 19.3 % (11.5-14.5) H Platelet Count 270 x10^3/uL (140-400) Neutrophils (%) (Auto) 56 % (31-73) Lymphocytes (%) (Auto) 19 % (24-48) L Monocytes (%) (Auto) 5 % (0-9) Eosinophils (%) (Auto) 19 % (0-3) H Basophils (%) (Auto) 1 % (0-3) Neutrophils # (Auto) 7.5 x10^3uL (1.8-7.7) Lymphocytes # (Auto) 2.6 x10^3/uL (1.0-4.8) Monocytes # (Auto) 0.7 x10^3/uL (0.0-1.1) Eosinophils # (Auto) 2.6 x10^3/uL (0.0-0.7) H Basophils # (Auto) 0.1 x10^3/uL (0.0-0.2) Segmented Neutrophils % 51 % (35-66) Lymphocytes % 27 % (24-48) Monocytes % 3 % (0-10) Eosinophils % 17 % (0-5) H Basophils % 2 % (0-3) Platelet Estimate Adequate (ADEQUATE) Sodium Level 144 mmol/L (136-145) Potassium Level 3.7 mmol/L (3.5-5.1) Chloride Level 105 mmol/L (98-107) Carbon Dioxide Level 29 mmol/L (21-32) Anion Gap 10 (6-14) Blood Urea Nitrogen 6 mg/dL (7-20) L Creatinine 0.7 mg/dL (0.6-1.0) Estimated GFR (Cockcroft-Gault) 120.6 BUN/Creatinine Ratio 9 (6-20) Glucose Level 101 mg/dL (70-99) H Lactic Acid Level 1.8 mmol/L (0.4-2.0) Calcium Level 8.9 mg/dL (8.5-10.1) Magnesium Level 2.0 mg/dL (1.8-2.4) Total Bilirubin 0.1 mg/dL (0.2-1.0) L Aspartate Amino Transferase (AST) 26 U/L (15-37) Alanine Aminotransferase (ALT) 14 U/L (14-59) Alkaline Phosphatase 70 U/L (46-116) Troponin I Quantitative < 0.017 ng/mL (0.000-0.055) Total Protein 8.7 g/dL (6.4-8.2) H Albumin 4.1 g/dL (3.4-5.0) Albumin/Globulin Ratio 0.9 (1.0-1.7) L Laboratory Tests 07/12/18 22:00 Laboratory Tests 07/12/18 22:00 (RAINE POTTS DO) EKG EKG EKG obtained 07/12/18 at 2207 Interpreted by ER physician Sinus tachycardia Nonspec. ST/T changes Rate 134 No STEMI (RONALD BUSH APRN) Radiology/Procedures Radiology/Procedures PROCEDURE: CHEST AP ONLY Indication:SOA TECHNIQUE:Portable AP chest X-ray COMPARISON:03/13/2017 FINDINGS: Heart is normal in size. Lungs are clear of focal consolidation. Prominent bilateral bronchial markings are seen. No pneumothorax or pleural effusion. Visualized bony thorax within normal limits. IMPRESSION: Prominent bilateral bronchovascular markings may be secondary to bronchitis. Clinically correlate. Electronically signed by: Roscoe Dorado DO (07/12/2018 10:28 PM) [facility] DICTATED and SIGNED BY: ROSCOE DORADO DO DATE: 07/12/182227 (RONALD BUSH APRN) Course & Med Decision Making Course & Med Decision Making Pertinent Labs and Imaging studies reviewed. (See chart for details) 2345: Patient was evaluated in the ER for complaints of increased shortness of air and was given 2 Duoneb txs prior to arrival by EMS and then received another one on arrival. She received Solu-Medrol 125mg IV and IV fld bolus. She remained tachycardic in the 120's and was anxious. Bipap was ordered and RT reports pt refused. IV Ativan was ordered. She had minimal improvement in anxiety/SOA and so admission was discussed. She is agreeable with admit plan. Will start pt on Azithromycin IV with chest xray results of bronchitis. Pt had NL lactic acid- her WBCs were elevated which may be somewhat r/t distress/ anxiety. Neg. flu test. Will admit to CVC as pt has hx of resp. failure and condition is guarded. Will admit to hospitalist services for further care and consult pulmonology with admit orders. Pt's case was discussed with Dr. Potts. (RONALD BUSH APRN) Toshia Disclaimer Toshia Disclaimer This electronic medical record was generated, in whole or in part, using a voice recognition dictation system. (RONALD BUSH APRN) Departure Departure Impression: Primary Impression: Asthma exacerbation Additional Impressions: Shortness of breath Bronchitis Disposition: ADMITTED INPATIENT Admitting Physician: Other (Dr. Carter) (RONALD BUSH APRN) Condition: GUARDED Referrals: NO PCP (PCP) Scripts Albuterol Sulfate (VENTOLIN HFA INHALER) 18 Gm Hfa.aer.ad 2 PUFF INH Q4HRS for FOR ASTHMA for 30 Days, #1 INHALER 3 Refills Prov: BRITT BOOGIE MD 07/13/18 Montelukast Sodium (MONTELUKAST SODIUM TABLET) 10 Mg Tablet 10 MG PO QHS for ASTHMA for 30 Days, #30 TAB 11 Refills Prov: BRITT BOOGIE MD 07/13/18 Levetiracetam (KEPPRA) 1,000 Mg Tablet 1000 MG PO BID for tremors for 30 Days, #60 TAB Prov: BRITT BOOGIE MD 07/13/18 Prednisone (PREDNISONE ) 10 Mg Tablet 10 MG PO UD for PREDNISONE TAPER for 13 Days, #30 TAB 0 Refills take 4 tablets daily for 3 days, then decrease by 1 tablet every 3 days til gone Prov: BRITT BOOGIE MD 07/13/18 Budesonide/Formoterol Fumarate (SYMBICORT 160-4.5 MCG INHALER) 10.2 Gm Hfa.aer.ad 2 PUFF IH DAILY for ASTHMA for 30 Days, #10.6 GM 3 Refills Prov: BRITT BOOGIE MD 07/13/18 Attending Signature Attending Signature 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 I was available for consultation as needed during the patient's visit in the emergency department. I agree with the clinical impression, plan, and disposition. (RAINE POTTS DO) Problem Qualifiers RONALD BUSH APRN Jul 13, 2018 00:38 RAINE POTTS DO Aug 01, 2018 10:32
[2018-07-13 00:43] LABS: BILIRUBIN,URINE NEGATIVE (NEG); CLARITY,URINE CLOUDY; COLOR,URINE YELLOW; NITRITE,URINE NEGATIVE (NEG); PH,URINE 7.5; PROTEIN,URINE NEGATIVE (NEG-TRACE); UROBILINOGEN,URINE 0.2 mg/dL (0.2 mg/dL)
[2018-07-13] MEDS ORDERED: ACETAMINOPHEN 325 MG TABLET. PO PRN (00:45)
[2018-07-13 01:00] LABS: BACTERIA,URINE FEW /HPF (0-FEW); RBC,URINE 0 /HPF (0-2)
[2018-07-13 01:01] LABS: AMORPHOUS SEDIMENT,UR PRESENT /HPF; SQUAMOUS EPITHELIAL CELL,UR MOD /LPF
[2018-07-13 01:07] LABS: INFLUENZA A PATIENT NEGATIVE (NEGATIVE); INFLUENZA B PATIENT NEGATIVE (NEGATIVE)
[2018-07-13] MEDS ORDERED: LEVE100020 PO ×2 (01:45→15:09)
[2018-07-13] MEDS: IV NORMAL SALINE 1000ML BAG 1,000 ML IV SCH ×3 (01:56→21:56)
--- NOTE | 2018-07-13 02:00 | NUR ---
Pt admitted to 263 with acute exab of asthma, vss, nonlabored breathing on 2liters at this time. assessment and history complete, oriented to staff, room and explained poc. observed pt having tremors/spastic movements in which pt verbalized having for approx. 1-2 years. will cont to monitor pt for changes. call light in place. pmrn
[2018-07-13] MEDS: clonazePAM 0.5 MG TABLET PO SCH ×4 (03:30→21:53)
[2018-07-13] MEDS ORDERED: levETIRAcetam 500 MG TABLET PO ONE (03:30)
--- NOTE | 2018-07-13 07:53 | EKG ---
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
[2018-07-13] MEDS: IPRATRPIUM/ALBUTEROL 0.5/2.5MG 3 ML NEBU. NEB SCH ×4 (08:15→20:41)
--- NOTE | 2018-07-13 08:21 | PDOC1 ---
History and Physical Date of Admission Date of Admission DATE: 07/13/18 TIME: 08:15 Identification/Chief Complaint Chief Complaint Shortness of breath Source Source: Patient History of Present Illness History of Present Illness Ms Haro is a 27yo F w/ PMHx Bryce-Laureano syndrome movement disorder, anxiety, moderate persistent asthma with multiple prior intubations for respiratory failure who presents with worsening shortness of breath. 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 She has history of respiratory failure multiple times for asthma exacerbation. The patient is unable to afford any maintenance steroid inhaler. She was brought into the hospital with complaint of shortness of breath. She said she was wheezing. She has a cough, which was nonproductive. No chest pain. No headaches. No nausea, vomiting or diarrhea. She was not improved with multiple treatments with albuterol in the ED and was admitted for further care with pulmonology in consultation. Past Medical History Pulmonary: Asthma, Pneumonia Psych: Anxiety Past Surgical History Past Surgical History: Other Family History Family History: Hypertension, Other Social History Smoke: Quit ALCOHOL: none Drugs: Marijuana Current Problem List Problem List Problems Medical Problems: (1) Asthma exacerbation Status: Acute Current Medications Current Medications Current Medications Methylprednisolone Sodium Succinate (SOLU-Medrol 125MG VIAL) 125 mg 1X ONCE IV Last administered on 07/12/18at 22:34; Start 07/12/18 at 22:30; Stop 07/12/18 at 22:31; Status DC Sodium Chloride 500 ml @ 500 mls/hr 1X ONCE IV Last administered on 07/12/18at 22:34; Start 07/12/18 at 22:30; Stop 07/12/18 at 23:29; Status DC Albuterol/ Ipratropium (Duoneb) 3 ml 1X ONCE NEB Last administered on at 22:02; Start 07/12/18 at 23:00; Stop 07/12/18 at 23:01; Status DC Lorazepam (Ativan) 0.5 mg 1X ONCE IV Last administered on 07/12/18at 23:09; Start 07/12/18 at 23:15; Stop 07/12/18 at 23:16; Status DC Sodium Chloride 1,000 ml @ 100 mls/hr Q10H IV Last administered on 07/13/18at 01 :56; Start 07/13/18 at 01:00; Stop 07/14/18 at 00:59 Acetaminophen (Tylenol) 650 mg PRN Q4HRS PRN PO FEVER; Start 07/13/18 at 00:45; Stop 07/14/18 at 00:44 Albuterol/ Ipratropium (Duoneb) 3 ml RTQID NEB ; Start 07/13/18 at 08:00; Stop at 07:59 Lorazepam (Ativan) 1 mg PRN Q4HRS PRN IV ANXIETY / AGITATION; Start 07/13/18 at 00:45 Levetiracetam (Keppra) 1,000 mg 1X ONCE PO Last administered on 07/13/18at 03:18 ; Start 07/13/18 at 03:30; Stop 07/13/18 at 03:31; Status DC Clonazepam (KlonoPIN) 0.5 mg TID PO ; Start 07/13/18 at 03:30 Levetiracetam (Keppra) 1,000 mg BID PO ; Start 07/13/18 at 09:00 Active Scripts Active Prednisone (Prednisone) 10 Mg Tablet 50 Mg PO DAILY Pulmicort (Budesonide) 0.5 Mg/2 Ml Ampul.neb 1 Vial NEB BID Medrol (Methylprednisolone) 4 Mg Tab.ds.pk 1 Pkg PO UD Prednisone (Prednisone) 10 Mg Tablet 10 Mg PO UD take 4 tablets daily for 3 days, then decrease by 1 tablet every 3 days til gone Proair Hfa Inhaler (Albuterol Sulfate) 8.5 Gm Hfa.aer.ad 1 Puff INH PRN Q6HRS PRN Proair Hfa Inhaler (Albuterol Sulfate) 8.5 Gm Hfa.aer.ad 1 Puff INH PRN Q6HRS PRN Symbicort 160-4.5 Mcg Inhaler (Budesonide/Formoterol Fumarate) 10.2 Gm Hfa.aer.ad 2 Puff IH DAILY Reported Keppra (Levetiracetam) 1,000 Mg Tablet 1,000 Mg PO BID Albuterol Sulfate Hfa Inhaler (Albuterol Sulfate) 8.5 Gm Hfa.aer.ad 2 Puff INH Q4HRS Allergies Allergies: Coded Allergies: No Known Drug Allergies (Unverified , 08/28/14) ROS General: YES: Fatigue, Malaise, Appetite; No: Chills, Night Sweats, Other PSYCHOLOGICAL ROS: YES: Anxiety; No: Behavioral Disorder, Concentration difficultie, Decreased libido, Depression, Disorientation, Hallucinations, Hostility, Irritablity, Memory difficulties, Mood Swings, Obsessive thoughts, Physical abuse, Sexual abuse, Sleep disturbances, Suicidal ideation, Other Eyes: No Blurry vision, No Decreased vision, No Double vision, No Dry eyes, No Excessive tearing, No Eye Pain, No Itchy Eyes, No Loss of vision, No Photophobia , No Scotomata, No Uses contacts, No Uses glasses, No Other HEENT: No: Heacaches, Visual Changes, Hearing change, Nasal congestion, Nasal discharge, Oral lesions, Sinus pain, Sore Throat, Epistaxis, Sneezing, Snoring, Tinnitus, Vertigo, Vocal changes, Other ALLERGY AND IMMUNOLOGY: No: Hives, Insect Bite Sensitivity, Itchy/Watery Eyes, Nasal Congestion, Post Nasal Drip, Seasonal Allergies, Other Hematological and Lymphatic: No: Bleeding Problems, Blood Clots, Blood Transfusions, Brusing, Night Sweats, Pallor, Swollen Lymph Nodes, Other ENDOCRINE: No: Breast Changes, Galactorrhea, Hair Pattern Changes, Hot Flashes , Malaise/lethargy, Mood Swings, Palpitations, Polydipsia/polyuria, Skin Changes , Temperature Intolerance, Unexpected Weight Changes, Other Breast: No New/Changing Breast Lumps, No Nipple changes, No Nipple discharge, No Other Respiratory: YES: Cough, Shortness of breath, SOB with excertion, Tachypnea, Wheezing; No: Hemoptysis, Orthopnea, Pleuritic Pain, Sputum Changes, Stridor, Other Cardiovascular: No Chest Pain, No Palpitations, No Orthopnea, No Paroxysmal Noc. Dyspnea, No Edema, No Lt Headedness, No Other Gastrointestinal: No Nausea, No Vomiting, No Abdominal Pain, No Diarrhea, No Constipation, No Melena, No Hematochezia, No Other Genitourinary: No Dysuria, No Frequency, No Incontinence, No Hematuria, No Retention, No Discharge, No Urgency, No Pain, No Flank Pain, No Other, No , No , No , No , No , No , No Musculoskeletal: No Gait Disturbance, No Joint Pain, No Joint Stiffness, No Joint Swelling, No Muscle Pain, No Muscular Weakness, No Pain In:, No Swelling In:, No Other Neurological: No Behavorial Changes, No Bowel/Bladder ControlChng, No Confusion , No Dizziness, No Gait Disturbance, No Headaches, No Impaired Coord/balance, No Memory Loss, No Numbness/Tingling, No Seizures, No Speech Problems, No Tremors, No Visual Changes, No Weakness, No Other Skin: No Dry Skin, No Eczema, No Hair Changes, No Lumps, No Mole Changes, No Mottling, No Nail Changes, No Pruritus, No Rash, No Skin Lesion Changes, No Other, No Acne Physical Exam General: Alert, Oriented X3, Cooperative, No acute distress HEENT: Atraumatic, PERRLA, EOMI, Mucous membr. moist/pink Lungs: Other (Wheezing) Heart: S1S2, RRR Abdomen: Normal bowel sounds, Soft, No tenderness, No hepatosplenomegaly, No masses Extremities: No clubbing, No cyanosis, No edema, Normal pulses, No tenderness/ swelling Skin: No rashes, No breakdown, No significant lesion Neuro: Normal gait, Normal speech, Strength at 5/5 X4 ext, Normal tone, Sensation intact, Cranial nerves 3-12 NL, Reflexes 2+ Psych/Mental Status: Mental status NL, Mood NL Vitals Vitals Vital Signs Date Time Temp Pulse Resp B/P (MAP) Pulse Ox O2 Delivery O2 Flow Rate FiO2 07/13/18 07:53 98.0 99 18 146/95 (112) 99 Nasal Cannula 2.0 98.0 Labs Labs Laboratory Tests Test 07/12/18 22:00 07/13/18 00:20 07/13/18 00:25 07/13/18 00:29 White Blood Count 13.6 x10^3/uL (4.0-11.0) Red Blood Count 5.08 x10^6/uL (3.50-5.40) Hemoglobin 13.2 g/dL (12.0-15.5) Hematocrit 40.8 % (36.0-47.0) Mean Corpuscular Volume 80 fL (79-100) Mean Corpuscular Hemoglobin 26 pg (25-35) Mean Corpuscular Hemoglobin Concent 32 g/dL (31-37) Red Cell Distribution Width 19.3 % (11.5-14.5) Platelet Count 270 x10^3/uL (140-400) Neutrophils (%) (Auto) 56 % (31-73) Lymphocytes (%) (Auto) 19 % (24-48) Monocytes (%) (Auto) 5 % (0-9) Eosinophils (%) (Auto) 19 % (0-3) Basophils (%) (Auto) 1 % (0-3) Neutrophils # (Auto) 7.5 x10^3uL (1.8-7.7) Lymphocytes # (Auto) 2.6 x10^3/uL (1.0-4.8) Monocytes # (Auto) 0.7 x10^3/uL (0.0-1.1) Eosinophils # (Auto) 2.6 x10^3/uL (0.0-0.7) Basophils # (Auto) 0.1 x10^3/uL (0.0-0.2) Segmented Neutrophils % 51 % (35-66) Lymphocytes % 27 % (24-48) Monocytes % 3 % (0-10) Eosinophils % 17 % (0-5) Basophils % 2 % (0-3) Platelet Estimate Adequate (ADEQUATE) Sodium Level 144 mmol/L (136-145) Potassium Level 3.7 mmol/L (3.5-5.1) Chloride Level 105 mmol/L (98-107) Carbon Dioxide Level 29 mmol/L (21-32) Anion Gap 10 (6-14) Blood Urea Nitrogen 6 mg/dL (7-20) Creatinine 0.7 mg/dL (0.6-1.0) Estimated GFR (Cockcroft-Gault) 120.6 BUN/Creatinine Ratio 9 (6-20) Glucose Level 101 mg/dL (70-99) Lactic Acid Level 1.8 mmol/L (0.4-2.0) Calcium Level 8.9 mg/dL (8.5-10.1) Magnesium Level 2.0 mg/dL (1.8-2.4) Total Bilirubin 0.1 mg/dL (0.2-1.0) Aspartate Amino Transf (AST/SGOT) 26 U/L (15-37) Alanine Aminotransferase (ALT/SGPT) 14 U/L (14-59) Alkaline Phosphatase 70 U/L (46-116) Troponin I Quantitative < 0.017 ng/mL (0.000-0.055) Total Protein 8.7 g/dL (6.4-8.2) Albumin 4.1 g/dL (3.4-5.0) Albumin/Globulin Ratio 0.9 (1.0-1.7) Influenza Type A Antigen Negative (NEGATIVE) Influenza Type B Antigen Negative (NEGATIVE) Urine Collection Type Unknown Urine Color Yellow Urine Clarity Cloudy Urine pH 7.5 Urine Specific [place] 1.020 Urine Protein Negative mg/dL (NEG-TRACE) Urine Glucose (UA) Negative mg/dL (NEG) Urine Ketones (Stick) Negative mg/dL (NEG) Urine Blood Negative (NEG) Urine Nitrite Negative (NEG) Urine Bilirubin Negative (NEG) Urine Urobilinogen Dipstick 0.2 mg/dL (0.2 mg/dL) Urine Leukocyte Esterase Moderate (NEG) Urine RBC 0 /HPF (0-2) Urine WBC 11-20 /HPF (0-4) Urine Squamous Epithelial Cells Mod /LPF Urine Amorphous Sediment Present /HPF Urine Bacteria Few /HPF (0-FEW) Urine Mucus Slight /LPF Bedside Urine HCG, Qualitative Hcg negative (Negative) Laboratory Tests Test 07/12/18 22:00 07/13/18 00:20 07/13/18 00:25 07/13/18 00:29 White Blood Count 13.6 x10^3/uL (4.0-11.0) Red Blood Count 5.08 x10^6/uL (3.50-5.40) Hemoglobin 13.2 g/dL (12.0-15.5) Hematocrit 40.8 % (36.0-47.0) Mean Corpuscular Volume 80 fL (79-100) Mean Corpuscular Hemoglobin 26 pg (25-35) Mean Corpuscular Hemoglobin Concent 32 g/dL (31-37) Red Cell Distribution Width 19.3 % (11.5-14.5) Platelet Count 270 x10^3/uL (140-400) Neutrophils (%) (Auto) 56 % (31-73) Lymphocytes (%) (Auto) 19 % (24-48) Monocytes (%) (Auto) 5 % (0-9) Eosinophils (%) (Auto) 19 % (0-3) Basophils (%) (Auto) 1 % (0-3) Neutrophils # (Auto) 7.5 x10^3uL (1.8-7.7) Lymphocytes # (Auto) 2.6 x10^3/uL (1.0-4.8) Monocytes # (Auto) 0.7 x10^3/uL (0.0-1.1) Eosinophils # (Auto) 2.6 x10^3/uL (0.0-0.7) Basophils # (Auto) 0.1 x10^3/uL (0.0-0.2) Segmented Neutrophils % 51 % (35-66) Lymphocytes % 27 % (24-48) Monocytes % 3 % (0-10) Eosinophils % 17 % (0-5) Basophils % 2 % (0-3) Platelet Estimate Adequate (ADEQUATE) Sodium Level 144 mmol/L (136-145) Potassium Level 3.7 mmol/L (3.5-5.1) Chloride Level 105 mmol/L (98-107) Carbon Dioxide Level 29 mmol/L (21-32) Anion Gap 10 (6-14) Blood Urea Nitrogen 6 mg/dL (7-20) Creatinine 0.7 mg/dL (0.6-1.0) Estimated GFR (Cockcroft-Gault) 120.6 BUN/Creatinine Ratio 9 (6-20) Glucose Level 101 mg/dL (70-99) Lactic Acid Level 1.8 mmol/L (0.4-2.0) Calcium Level 8.9 mg/dL (8.5-10.1) Magnesium Level 2.0 mg/dL (1.8-2.4) Total Bilirubin 0.1 mg/dL (0.2-1.0) Aspartate Amino Transf (AST/SGOT) 26 U/L (15-37) Alanine Aminotransferase (ALT/SGPT) 14 U/L (14-59) Alkaline Phosphatase 70 U/L (46-116) Troponin I Quantitative < 0.017 ng/mL (0.000-0.055) Total Protein 8.7 g/dL (6.4-8.2) Albumin 4.1 g/dL (3.4-5.0) Albumin/Globulin Ratio 0.9 (1.0-1.7) Influenza Type A Antigen Negative (NEGATIVE) Influenza Type B Antigen Negative (NEGATIVE) Urine Collection Type Unknown Urine Color Yellow Urine Clarity Cloudy Urine pH 7.5 Urine Specific [place] 1.020 Urine Protein Negative mg/dL (NEG-TRACE) Urine Glucose (UA) Negative mg/dL (NEG) Urine Ketones (Stick) Negative mg/dL (NEG) Urine Blood Negative (NEG) Urine Nitrite Negative (NEG) Urine Bilirubin Negative (NEG) Urine Urobilinogen Dipstick 0.2 mg/dL (0.2 mg/dL) Urine Leukocyte Esterase Moderate (NEG) Urine RBC 0 /HPF (0-2) Urine WBC 11-20 /HPF (0-4) Urine Squamous Epithelial Cells Mod /LPF Urine Amorphous Sediment Present /HPF Urine Bacteria Few /HPF (0-FEW) Urine Mucus Slight /LPF Bedside Urine HCG, Qualitative Hcg negative (Negative) VTE Prophylaxis Ordered VTE Prophylaxis Devices: Yes VTE Pharmacological Prophylaxi: Yes Assessment/Plan Assessment/Plan A/P: Acute asthma exacerbation - steroids, nebs, pulmicort, singulair. Pulm consultation Moderately persistent asthma - under suboptimal control due to inability to afford maintenance steroid inhaler and short-acting bronchodilators. History of respiratory failure secondary to asthma exacerbation. 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 BRITT BOOGIE MD Jul 13, 2018 08:21
[2018-07-13] MEDS: BUDESONIDE 0.5 MG/2 ML NEBU. NEB SCH ×2 (08:30→20:41)
[2018-07-13] MEDS: levETIRAcetam 500 MG TABLET PO SCH ×2 (08:31→21:53)
--- NOTE | 2018-07-13 11:48 | CONS ---
DATE OF CONSULTATION: PULMONARY CONSULTATION ATTENDING PHYSICIAN: Dr. Carter. REASON FOR CONSULTATION: Asthma exacerbation. HISTORY OF PRESENT ILLNESS: The patient is a 27-year-old asthmatic who has poorly controlled asthma. 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 She has history of respiratory failure multiple times for asthma exacerbation. The patient is unable to afford any maintenance steroid inhaler. She was brought into the hospital with complaint of shortness of breath. She said she was wheezing. She has a cough, which was nonproductive. No chest pain. No headaches. No nausea, vomiting or diarrhea. She was hospitalized. Chest x-ray was reviewed by me and there were no acute infiltrates seen. She does not smoke cigarettes. She used to do marijuana in the past. PAST MEDICAL HISTORY: History of asthma, not under optimum control; history of pneumonia; anxiety; history of marijuana use and history of Bryce-Laureano syndrome. PAST SURGICAL HISTORY: History of trach as an , per history. FAMILY HISTORY: Hypertension. ALLERGIES: None. MEDICATIONS: Reviewed as listed in the MRAD, including DuoNebs and Pulmicort. REVIEW OF SYSTEMS: Twelve-point system obtained. Pertinent positives discussed in my history of present illness, otherwise noncontributory. All systems that were negative were reviewed as well. SOCIAL HISTORY: She does not smoke cigarettes, but used to do marijuana in the past. PHYSICAL EXAMINATION: VITAL SIGNS: Stable. NECK: Supple. LUNGS: With occasional wheezes. CARDIOVASCULAR EXAMINATION: Regular rate and rhythm. ABDOMEN: Soft, nontender. EXTREMITIES: With no pitting edema. LABORATORY DATA: Labs were reviewed. Influenza screen negative. Chemistries within normal limits. White cell count 13.6. IMPRESSION: 1. Dyspnea secondary to acute asthma exacerbation in a patient who has moderately persistent asthma under suboptimal control due to inability to afford maintenance steroid inhaler and short-acting bronchodilators. She has another exacerbation. She has prior history of respiratory failure secondary to asthma exacerbation. 2. No evidence of pneumonia. 3. History of Bryce-Laureano syndrome with chronic myoclonus. RECOMMENDATIONS: 1. Continue with present DuoNebs. 2. Continue with budesonide. 3. Add oral prednisone. 4. Likely discharge in the next 24 hours. 5. I have advised the patient to follow with her primary care doctor, who can also provide samples of steroid inhaler. This would be the best medicine for her to keep her asthma under control. KERRY ENNIS MD DR: JATIN/yoli JOB#: [id number] / [id number] AISHWARYA
[2018-07-13] MEDS: predniSONE 20 MG TABLET PO SCH (12:45)
--- NOTE | 2018-07-13 14:58 | NUR ---
Pt states that the breathing treatments from RT are worsening her tremors to the point that she is unable to eat on her own without marked difficulty. She does not feel the nebulizer treatments improve her symptoms sufficiently.
[2018-07-13] MEDS ORDERED: BUDE10.2 IH (15:09)
[2018-07-13] MEDS ORDERED: MONT10TA9 PO (15:09)
[2018-07-13] MEDS ORDERED: VENTOLIN HFA18 GM INH (15:09)
[2018-07-13] MEDS ORDERED: PRED-220 PO (15:09)
--- NOTE | 2018-07-13 15:29 | PDOC3 ---
Discharge Summary Visit Information Date of Admission: Jul 12, 2018 Date of Discharge: Jul 14, 2018 Admitting Diagnosis: Acute asthma exacerbation Final Diagnosis Problems Medical Problems: (1) Asthma exacerbation Status: Acute Brief Hospital Course Allergies Allergies Coded Allergies Type Severity Reaction Last Updated Verified No Known Drug Allergies 08/28/14 No Vital Signs Vital Signs Date Time Temp Pulse Resp B/P (MAP) Pulse Ox O2 Delivery O2 Flow Rate FiO2 07/13/18 14:55 98.4 119 18 153/89 (110) 96 Nasal Cannula 2.0 98.4 Lab Results Laboratory Tests Test 07/12/18 22:00 07/13/18 00:20 07/13/18 00:25 07/13/18 00:29 White Blood Count 13.6 x10^3/uL (4.0-11.0) Red Blood Count 5.08 x10^6/uL (3.50-5.40) Hemoglobin 13.2 g/dL (12.0-15.5) Hematocrit 40.8 % (36.0-47.0) Mean Corpuscular Volume 80 fL (79-100) Mean Corpuscular Hemoglobin 26 pg (25-35) Mean Corpuscular Hemoglobin Concent 32 g/dL (31-37) Red Cell Distribution Width 19.3 % (11.5-14.5) Platelet Count 270 x10^3/uL (140-400) Neutrophils (%) (Auto) 56 % (31-73) Lymphocytes (%) (Auto) 19 % (24-48) Monocytes (%) (Auto) 5 % (0-9) Eosinophils (%) (Auto) 19 % (0-3) Basophils (%) (Auto) 1 % (0-3) Neutrophils # (Auto) 7.5 x10^3uL (1.8-7.7) Lymphocytes # (Auto) 2.6 x10^3/uL (1.0-4.8) Monocytes # (Auto) 0.7 x10^3/uL (0.0-1.1) Eosinophils # (Auto) 2.6 x10^3/uL (0.0-0.7) Basophils # (Auto) 0.1 x10^3/uL (0.0-0.2) Segmented Neutrophils % 51 % (35-66) Lymphocytes % 27 % (24-48) Monocytes % 3 % (0-10) Eosinophils % 17 % (0-5) Basophils % 2 % (0-3) Platelet Estimate Adequate (ADEQUATE) Sodium Level 144 mmol/L (136-145) Potassium Level 3.7 mmol/L (3.5-5.1) Chloride Level 105 mmol/L (98-107) Carbon Dioxide Level 29 mmol/L (21-32) Anion Gap 10 (6-14) Blood Urea Nitrogen 6 mg/dL (7-20) Creatinine 0.7 mg/dL (0.6-1.0) Estimated GFR (Cockcroft-Gault) 120.6 BUN/Creatinine Ratio 9 (6-20) Glucose Level 101 mg/dL (70-99) Lactic Acid Level 1.8 mmol/L (0.4-2.0) Calcium Level 8.9 mg/dL (8.5-10.1) Magnesium Level 2.0 mg/dL (1.8-2.4) Total Bilirubin 0.1 mg/dL (0.2-1.0) Aspartate Amino Transf (AST/SGOT) 26 U/L (15-37) Alanine Aminotransferase (ALT/SGPT) 14 U/L (14-59) Alkaline Phosphatase 70 U/L (46-116) Troponin I Quantitative < 0.017 ng/mL (0.000-0.055) Total Protein 8.7 g/dL (6.4-8.2) Albumin 4.1 g/dL (3.4-5.0) Albumin/Globulin Ratio 0.9 (1.0-1.7) Influenza Type A Antigen Negative (NEGATIVE) Influenza Type B Antigen Negative (NEGATIVE) Urine Collection Type Unknown Urine Color Yellow Urine Clarity Cloudy Urine pH 7.5 Urine Specific [place] 1.020 Urine Protein Negative mg/dL (NEG-TRACE) Urine Glucose (UA) Negative mg/dL (NEG) Urine Ketones (Stick) Negative mg/dL (NEG) Urine Blood Negative (NEG) Urine Nitrite Negative (NEG) Urine Bilirubin Negative (NEG) Urine Urobilinogen Dipstick 0.2 mg/dL (0.2 mg/dL) Urine Leukocyte Esterase Moderate (NEG) Urine RBC 0 /HPF (0-2) Urine WBC 11-20 /HPF (0-4) Urine Squamous Epithelial Cells Mod /LPF Urine Amorphous Sediment Present /HPF Urine Bacteria Few /HPF (0-FEW) Urine Mucus Slight /LPF Bedside Urine HCG, Qualitative Hcg negative (Negative) Laboratory Tests Test 07/12/18 22:00 07/13/18 00:20 07/13/18 00:25 07/13/18 00:29 White Blood Count 13.6 x10^3/uL (4.0-11.0) Red Blood Count 5.08 x10^6/uL (3.50-5.40) Hemoglobin 13.2 g/dL (12.0-15.5) Hematocrit 40.8 % (36.0-47.0) Mean Corpuscular Volume 80 fL (79-100) Mean Corpuscular Hemoglobin 26 pg (25-35) Mean Corpuscular Hemoglobin Concent 32 g/dL (31-37) Red Cell Distribution Width 19.3 % (11.5-14.5) Platelet Count 270 x10^3/uL (140-400) Neutrophils (%) (Auto) 56 % (31-73) Lymphocytes (%) (Auto) 19 % (24-48) Monocytes (%) (Auto) 5 % (0-9) Eosinophils (%) (Auto) 19 % (0-3) Basophils (%) (Auto) 1 % (0-3) Neutrophils # (Auto) 7.5 x10^3uL (1.8-7.7) Lymphocytes # (Auto) 2.6 x10^3/uL (1.0-4.8) Monocytes # (Auto) 0.7 x10^3/uL (0.0-1.1) Eosinophils # (Auto) 2.6 x10^3/uL (0.0-0.7) Basophils # (Auto) 0.1 x10^3/uL (0.0-0.2) Segmented Neutrophils % 51 % (35-66) Lymphocytes % 27 % (24-48) Monocytes % 3 % (0-10) Eosinophils % 17 % (0-5) Basophils % 2 % (0-3) Platelet Estimate Adequate (ADEQUATE) Sodium Level 144 mmol/L (136-145) Potassium Level 3.7 mmol/L (3.5-5.1) Chloride Level 105 mmol/L (98-107) Carbon Dioxide Level 29 mmol/L (21-32) Anion Gap 10 (6-14) Blood Urea Nitrogen 6 mg/dL (7-20) Creatinine 0.7 mg/dL (0.6-1.0) Estimated GFR (Cockcroft-Gault) 120.6 BUN/Creatinine Ratio 9 (6-20) Glucose Level 101 mg/dL (70-99) Lactic Acid Level 1.8 mmol/L (0.4-2.0) Calcium Level 8.9 mg/dL (8.5-10.1) Magnesium Level 2.0 mg/dL (1.8-2.4) Total Bilirubin 0.1 mg/dL (0.2-1.0) Aspartate Amino Transf (AST/SGOT) 26 U/L (15-37) Alanine Aminotransferase (ALT/SGPT) 14 U/L (14-59) Alkaline Phosphatase 70 U/L (46-116) Troponin I Quantitative < 0.017 ng/mL (0.000-0.055) Total Protein 8.7 g/dL (6.4-8.2) Albumin 4.1 g/dL (3.4-5.0) Albumin/Globulin Ratio 0.9 (1.0-1.7) Influenza Type A Antigen Negative (NEGATIVE) Influenza Type B Antigen Negative (NEGATIVE) Urine Collection Type Unknown Urine Color Yellow Urine Clarity Cloudy Urine pH 7.5 Urine Specific [place] 1.020 Urine Protein Negative mg/dL (NEG-TRACE) Urine Glucose (UA) Negative mg/dL (NEG) Urine Ketones (Stick) Negative mg/dL (NEG) Urine Blood Negative (NEG) Urine Nitrite Negative (NEG) Urine Bilirubin Negative (NEG) Urine Urobilinogen Dipstick 0.2 mg/dL (0.2 mg/dL) Urine Leukocyte Esterase Moderate (NEG) Urine RBC 0 /HPF (0-2) Urine WBC 11-20 /HPF (0-4) Urine Squamous Epithelial Cells Mod /LPF Urine Amorphous Sediment Present /HPF Urine Bacteria Few /HPF (0-FEW) Urine Mucus Slight /LPF Bedside Urine HCG, Qualitative Hcg negative (Negative) Brief Hospital Course Ms Haro is a 27yo F w/ PMHx Bryce-Laureano syndrome movement disorder, anxiety, moderate persistent asthma with multiple prior intubations for respiratory failure who presents with worsening shortness of breath. 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 She has history of respiratory failure multiple times for asthma exacerbation. The patient is unable to afford any maintenance steroid inhaler. She was brought into the hospital with complaint of shortness of breath. She said she was wheezing. She has a cough, which was nonproductive. No chest pain. No headaches. No nausea, vomiting or diarrhea. She was not improved with multiple treatments with albuterol in the ED and was admitted for further care with pulmonology in consultation. She improved over 24 hours, sent home with self care Acute asthma exacerbation - steroids, nebs, pulmicort, singulair. Pulm consultation - given a breo sample inhaler Moderately persistent asthma - under suboptimal control due to inability to afford maintenance steroid inhaler and short-acting bronchodilators. History of respiratory failure secondary to asthma exacerbation. Bryce-Laureano syndrome - cont keppra 1000mg BID Anxiety - cont klonopin Greater than 30 minutes spent on discharge which was delayed by a day due to lack of transportation and persistent tachycardia. Discharge Information Condition at Discharge: Improved Follow Up: Weeks (2) Disposition/Orders: D/C to Home Scheduled Albuterol Sulfate (Albuterol Sulfate Hfa Inhaler) 8.5 Gm Hfa.aer.ad, 2 PUFF INH Q4HRS for FOR ASTHMA, Ref 0 (Reported) Entered as Reported by: STAS SANTIZO on 06/11/14 09 Last Action: Reviewed on 07/13/18 0145 by LITTLE SENIOR Albuterol Sulfate (Ventolin Hfa Inhaler) 18 Gm Hfa.aer.ad, 2 PUFF INH Q4HRS for FOR ASTHMA for 30 Days, #1 Ref 3 Prescribed by: BRITT BOOGIE MD on 07/13/18 1509 Budesonide (Pulmicort) 0.5 Mg/2 Ml Ampul.neb, 1 VIAL NEB BID, #60 Ref 3 Prescribed by: JOSE CLAIRE on 02/15/17 1349 Budesonide/Formoterol Fumarate (Symbicort 160-4.5 Mcg Inhaler) 10.2 Gm Hfa.aer.ad, 2 PUFF IH DAILY for ASTHMA for 30 Days, #10.6 Ref 3 Prescribed by: BRITT BOOGIE MD on 07/13/18 1509 Levetiracetam (Keppra) 1,000 Mg Tablet, 1,000 MG PO BID for tremors for 30 Days , #60 Prescribed by: BRITT BOOGIE MD on 07/13/18 1509 Montelukast Sodium (Montelukast Sodium Tablet) 10 Mg Tablet, 10 MG PO QHS for ASTHMA for 30 Days, #30 Ref 11 Prescribed by: BRITT BOOGIE MD on 07/13/18 1509 Prednisone (Prednisone ) 10 Mg Tablet, 10 MG PO UD for PREDNISONE TAPER for 13 Days, #30 Ref 0 take 4 tablets daily for 3 days, then decrease by 1 tablet every 3 days til gone Prescribed by: BRITT BOOGIE MD on 07/13/18 1509 Scheduled PRN Albuterol Sulfate (Proair Hfa Inhaler) 8.5 Gm Hfa.aer.ad, 1 PUFF INH PRN Q6HRS PRN for SHORTNESS OF BREATH, #1 Ref 0 Prescribed by: ENA JAMES APRN on 09/07/16 1410 Albuterol Sulfate (Proair Hfa Inhaler) 8.5 Gm Hfa.aer.ad, 1 PUFF INH PRN Q6HRS PRN for SHORTNESS OF BREATH, #1 Prescribed by: KATY RAZA MD on 11/13/16 1408 Discontinued Medications Methylprednisolone (Medrol) 4 Mg Tab.ds.pk, 1 PKG PO UD, #1 Prescribed by: JOSE CLAIRE on 02/15/17 1349 Prednisone (Prednisone ) 10 Mg Tablet, 50 MG PO DAILY, #20 Prescribed by: GLENN GANN on 02/20/17 0419 BRITT BOOGIE MD Jul 13, 2018 15:29
--- NOTE | 2018-07-13 15:52 | NUR ---
SS following for discharge planning. SS reviewed pt chart. Pt is self pay pt. HCFS following for self pay status. Pt is from home. SS provided pt with resources for [place], [place] and [place], [place] to include prescription assistance and medical assistance. Pt's RN notified.
--- NOTE | 2018-07-13 16:32 | NUR ---
DC planning discussed w/pt, who states she does not have a ride home today, and she is concerned that the breathing treatments cause her tremors to increase. Discussed pt's tachycardia, with rate reaching 130-133 while sleeping deeply. Pt's HR while awake has been 104-123. Pt would like to skip next RT treatment (due now, plan communicated w/RT, to reassess later) and remain inpatient overnight, to DC early tomorrow. Pt states that she often awakens from a deep sleep due to a sensation of being choked, wonders if this is related to her increased heart rate.
[2018-07-13] MEDS ORDERED: MONTELUKAST SODIUM 10 MG TABLET. PO SCH (21:00)
[2018-07-14 03:37] VITALS: BP 119/94
--- NOTE | 2018-07-14 06:42 | NUR ---
Pt refused labs this am, explain to pt why dr ordered blood work to be done will cont to monitor pt, call light in place. pmrn
[2018-07-14 07:00] VITALS: BP 150/99
[2018-07-14] MEDS: BUDESONIDE 0.5 MG/2 ML NEBU. NEB SCH (08:00)
--- NOTE | 2018-07-14 08:10 | PDOC ---
PROGRESS NOTES Chief Complaint Chief Complaint Acute asthma exacerbation - steroids, nebs, pulmicort, singulair. Pulm consultation Moderately persistent asthma - under suboptimal control due to inability to afford maintenance steroid inhaler and short-acting bronchodilators. History of respiratory failure secondary to asthma exacerbation. Bryce-Laureano syndrome - cont keppra 1000mg BID Anxiety - cont klonopin History of Present Illness History of Present Illness Ms Haro is a 27yo F w/ PMHx Bryce-Laureano syndrome movement disorder, anxiety, moderate persistent asthma with multiple prior intubations for respiratory failure who presents with worsening shortness of breath. 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 She has history of respiratory failure multiple times for asthma exacerbation. The patient is unable to afford any maintenance steroid inhaler. She was brought into the hospital with complaint of shortness of breath. She said she was wheezing. She has a cough, which was nonproductive. No chest pain. No headaches. No nausea, vomiting or diarrhea. She was not improved with multiple treatments with albuterol in the ED and was admitted for further care with pulmonology in consultation. She improved over 24 hours, was still a bit tachycardic, unable to obtain a ride home, stayed overnight due to inability to leave. Feeling better this morning. Ok for home, SW to give [facility] resources as she desperately needs her medications filled, specifically a symbicort inhaler. Vitals Vitals Vital Signs Date Time Temp Pulse Resp B/P (MAP) Pulse Ox O2 Delivery O2 Flow Rate FiO2 07/14/18 07:00 98.0 77 16 150/99 (116) 94 Room Air 98.0 07/13/18 14:55 2.0 Physical Exam General: Alert, Oriented X3, Cooperative, No acute distress Lungs: Clear, Wheezing Abdomen: Normal bowel sounds, Soft, No tenderness, No hepatosplenomegaly, No masses Extremities: No clubbing, No cyanosis, No edema, Normal pulses, No tenderness/ swelling Skin: No rashes, No breakdown, No significant lesion Assessment and Plan Assessmemt and Plan Problems Medical Problems: (1) Asthma exacerbation Status: Acute Comment Review of Relevant I have reviewed the following items elizabet (where applicable) has been applied. Labs Laboratory Tests Test 07/12/18 22:00 07/13/18 00:20 07/13/18 00:25 07/13/18 00:29 White Blood Count 13.6 x10^3/uL (4.0-11.0) Red Blood Count 5.08 x10^6/uL (3.50-5.40) Hemoglobin 13.2 g/dL (12.0-15.5) Hematocrit 40.8 % (36.0-47.0) Mean Corpuscular Volume 80 fL (79-100) Mean Corpuscular Hemoglobin 26 pg (25-35) Mean Corpuscular Hemoglobin Concent 32 g/dL (31-37) Red Cell Distribution Width 19.3 % (11.5-14.5) Platelet Count 270 x10^3/uL (140-400) Neutrophils (%) (Auto) 56 % (31-73) Lymphocytes (%) (Auto) 19 % (24-48) Monocytes (%) (Auto) 5 % (0-9) Eosinophils (%) (Auto) 19 % (0-3) Basophils (%) (Auto) 1 % (0-3) Neutrophils # (Auto) 7.5 x10^3uL (1.8-7.7) Lymphocytes # (Auto) 2.6 x10^3/uL (1.0-4.8) Monocytes # (Auto) 0.7 x10^3/uL (0.0-1.1) Eosinophils # (Auto) 2.6 x10^3/uL (0.0-0.7) Basophils # (Auto) 0.1 x10^3/uL (0.0-0.2) Segmented Neutrophils % 51 % (35-66) Lymphocytes % 27 % (24-48) Monocytes % 3 % (0-10) Eosinophils % 17 % (0-5) Basophils % 2 % (0-3) Platelet Estimate Adequate (ADEQUATE) Sodium Level 144 mmol/L (136-145) Potassium Level 3.7 mmol/L (3.5-5.1) Chloride Level 105 mmol/L (98-107) Carbon Dioxide Level 29 mmol/L (21-32) Anion Gap 10 (6-14) Blood Urea Nitrogen 6 mg/dL (7-20) Creatinine 0.7 mg/dL (0.6-1.0) Estimated GFR (Cockcroft-Gault) 120.6 BUN/Creatinine Ratio 9 (6-20) Glucose Level 101 mg/dL (70-99) Lactic Acid Level 1.8 mmol/L (0.4-2.0) Calcium Level 8.9 mg/dL (8.5-10.1) Magnesium Level 2.0 mg/dL (1.8-2.4) Total Bilirubin 0.1 mg/dL (0.2-1.0) Aspartate Amino Transf (AST/SGOT) 26 U/L (15-37) Alanine Aminotransferase (ALT/SGPT) 14 U/L (14-59) Alkaline Phosphatase 70 U/L (46-116) Troponin I Quantitative < 0.017 ng/mL (0.000-0.055) Total Protein 8.7 g/dL (6.4-8.2) Albumin 4.1 g/dL (3.4-5.0) Albumin/Globulin Ratio 0.9 (1.0-1.7) Influenza Type A Antigen Negative (NEGATIVE) Influenza Type B Antigen Negative (NEGATIVE) Urine Collection Type Unknown Urine Color Yellow Urine Clarity Cloudy Urine pH 7.5 Urine Specific [place] 1.020 Urine Protein Negative mg/dL (NEG-TRACE) Urine Glucose (UA) Negative mg/dL (NEG) Urine Ketones (Stick) Negative mg/dL (NEG) Urine Blood Negative (NEG) Urine Nitrite Negative (NEG) Urine Bilirubin Negative (NEG) Urine Urobilinogen Dipstick 0.2 mg/dL (0.2 mg/dL) Urine Leukocyte Esterase Moderate (NEG) Urine RBC 0 /HPF (0-2) Urine WBC 11-20 /HPF (0-4) Urine Squamous Epithelial Cells Mod /LPF Urine Amorphous Sediment Present /HPF Urine Bacteria Few /HPF (0-FEW) Urine Mucus Slight /LPF Bedside Urine HCG, Qualitative Hcg negative (Negative) Microbiology 07/13/18 Blood Culture - Preliminary, Resulted NO GROWTH AFTER 1 DAY Medications Current Medications Methylprednisolone Sodium Succinate (SOLU-Medrol 125MG VIAL) 125 mg 1X ONCE IV Last administered on 07/12/18at 22:34; Start 07/12/18 at 22:30; Stop 07/12/18 at 22:31; Status DC Sodium Chloride 500 ml @ 500 mls/hr 1X ONCE IV Last administered on 07/12/18at 22:34; Start 07/12/18 at 22:30; Stop 07/12/18 at 23:29; Status DC Albuterol/ Ipratropium (Duoneb) 3 ml 1X ONCE NEB Last administered on 22:02; Start 07/12/18 at 23:00; Stop 07/12/18 at 23:01; Status DC Lorazepam (Ativan) 0.5 mg 1X ONCE IV Last administered on 07/12/18at 23:09; Start 07/12/18 at 23:15; Stop 07/12/18 at 23:16; Status DC Sodium Chloride 1,000 ml @ 100 mls/hr Q10H IV Last administered on 07/13/18 21 :56; Start 07/13/18 at 01:00; Stop 07/14/18 at 00:59; Status DC Acetaminophen (Tylenol) 650 mg PRN Q4HRS PRN PO FEVER; Start 07/13/18 at 00:45; Stop 07/14/18 at 00:44; Status DC Albuterol/ Ipratropium (Duoneb) 3 ml RTQID NEB Last administered on 07/13/18 20 :41; Start 07/13/18 at 08:00; Stop 07/14/18 at 07:59; Status DC Lorazepam (Ativan) 1 mg PRN Q4HRS PRN IV ANXIETY / AGITATION; Start 07/13/18 at 00:45 Levetiracetam (Keppra) 1,000 mg 1X ONCE PO Last administered on 07/13/18 03:18 ; Start 07/13/18 at 03:30; Stop 07/13/18 at 03:31; Status DC Clonazepam (KlonoPIN) 0.5 mg TID PO Last administered on 07/13/18 21:53; Start 07/13/18 at 03:30 Levetiracetam (Keppra) 1,000 mg BID PO Last administered on 07/13/18 21:53; Start 07/13/18 at 09:00 Budesonide (Pulmicort) 0.5 mg RTBID NEB Last administered on 07/13/18 20:41; Start 07/13/18 at 08:30 Montelukast Sodium (Singulair) 10 mg QHS PO Last administered on 07/13/18 21:53 ; Start 07/13/18 at 21:00 Prednisone (Prednisone) 30 mg DAILY PO Last administered on 07/13/18at 12:45; Start 07/13/18 at 12:30 Active Scripts Active Ventolin Hfa Inhaler (Albuterol Sulfate) 18 Gm Hfa.aer.ad 2 Puff INH Q4HRS 30 Days Montelukast Sodium Tablet (Montelukast Sodium) 10 Mg Tablet 10 Mg PO QHS 30 Days Keppra (Levetiracetam) 1,000 Mg Tablet 1,000 Mg PO BID 30 Days Prednisone (Prednisone) 10 Mg Tablet 10 Mg PO UD 13 Days take 4 tablets daily for 3 days, then decrease by 1 tablet every 3 days til gone Symbicort 160-4.5 Mcg Inhaler (Budesonide/Formoterol Fumarate) 10.2 Gm Hfa.aer.ad 2 Puff IH DAILY 30 Days Pulmicort (Budesonide) 0.5 Mg/2 Ml Ampul.neb 1 Vial NEB BID Proair Hfa Inhaler (Albuterol Sulfate) 8.5 Gm Hfa.aer.ad 1 Puff INH PRN Q6HRS PRN Proair Hfa Inhaler (Albuterol Sulfate) 8.5 Gm Hfa.aer.ad 1 Puff INH PRN Q6HRS PRN Reported Albuterol Sulfate Hfa Inhaler (Albuterol Sulfate) 8.5 Gm Hfa.aer.ad 2 Puff INH Q4HRS Vitals/I & O Vital Sign - Last 24 Hours 07/13/18 07/13/18 07/13/18 07/13/18 08:18 09:39 10:56 11:54 Temp 98.0 98.0 Pulse 111 Resp 18 B/P (MAP) 141/91 (108) Pulse Ox 99 95 O2 Delivery Nasal Cannula Nasal Cannula Nasal Cannula Room Air O2 Flow Rate 2.0 2.0 2.0 07/13/18 07/13/18 07/13/18 07/13/18 14:55 19:50 20:38 22:32 Temp 98.4 98.2 98.3 98.4 98.2 98.3 Pulse 119 119 100 Resp 18 20 16 B/P (MAP) 153/89 (110) 134/89 (104) 143/97 (112) Pulse Ox 96 97 98 O2 Delivery Nasal Cannula Room Air Room Air Room Air O2 Flow Rate 2.0 07/14/18 07/14/18 03:37 07:00 Temp 97.9 98.0 97.9 98.0 Pulse 84 77 Resp 16 16 B/P (MAP) 119/94 (102) 150/99 (116) Pulse Ox 99 94 O2 Delivery Room Air Room Air Intake and Output 07/13/18 07/13/18 07/14/18 14:59 22:59 06:59 Intake Total 995 ml 360 ml 240 ml Output Total 450 ml 550 ml 800 ml Balance 545 ml -190 ml -560 ml Nutrition Consultation Dietary Evaluation: Recommendations by RD: Increase Calorie Intake, Protein supplementation Comments: REC continue w/regular diet order, honor food preferences, and provide snacks as requested REC Ensure TID Expected Outcomes/Goals: PO intake to meet >75% est needs Interpretation of weight loss: >7.5% in 3 months Malnutrition Findings: Food and Nutrition Intake (Mod: <75% est energy req 7days Weight Status: Underweight BRITT BOOGIE MD Jul 14, 2018 08:10
[2018-07-14] MEDS: clonazePAM 0.5 MG TABLET PO SCH (10:07)
[2018-07-14] MEDS: levETIRAcetam 500 MG TABLET PO SCH (10:07)
[2018-07-14] MEDS: predniSONE 20 MG TABLET PO SCH (10:08)
--- NOTE | 2018-07-14 11:53 | PDOC ---
PULMONARY PROGRESS NOTES Subjective feels better Vitals Vital Signs Date Time Temp Pulse Resp B/P (MAP) Pulse Ox O2 Delivery O2 Flow Rate FiO2 07/14/18 08:00 Nasal Cannula 2.0 07/14/18 07:00 98.0 77 16 150/99 (116) 94 98.0 General: Alert, No acute distress HEENT: Other Lungs: Clear Cardiovascular: S1, S2 Abdomen: Soft Extremities: No Edema Skin: Warm Labs Laboratory Tests Test 07/12/18 22:00 07/13/18 00:20 07/13/18 00:25 07/13/18 00:29 White Blood Count 13.6 x10^3/uL (4.0-11.0) Red Blood Count 5.08 x10^6/uL (3.50-5.40) Hemoglobin 13.2 g/dL (12.0-15.5) Hematocrit 40.8 % (36.0-47.0) Mean Corpuscular Volume 80 fL (79-100) Mean Corpuscular Hemoglobin 26 pg (25-35) Mean Corpuscular Hemoglobin Concent 32 g/dL (31-37) Red Cell Distribution Width 19.3 % (11.5-14.5) Platelet Count 270 x10^3/uL (140-400) Neutrophils (%) (Auto) 56 % (31-73) Lymphocytes (%) (Auto) 19 % (24-48) Monocytes (%) (Auto) 5 % (0-9) Eosinophils (%) (Auto) 19 % (0-3) Basophils (%) (Auto) 1 % (0-3) Neutrophils # (Auto) 7.5 x10^3uL (1.8-7.7) Lymphocytes # (Auto) 2.6 x10^3/uL (1.0-4.8) Monocytes # (Auto) 0.7 x10^3/uL (0.0-1.1) Eosinophils # (Auto) 2.6 x10^3/uL (0.0-0.7) Basophils # (Auto) 0.1 x10^3/uL (0.0-0.2) Segmented Neutrophils % 51 % (35-66) Lymphocytes % 27 % (24-48) Monocytes % 3 % (0-10) Eosinophils % 17 % (0-5) Basophils % 2 % (0-3) Platelet Estimate Adequate (ADEQUATE) Sodium Level 144 mmol/L (136-145) Potassium Level 3.7 mmol/L (3.5-5.1) Chloride Level 105 mmol/L (98-107) Carbon Dioxide Level 29 mmol/L (21-32) Anion Gap 10 (6-14) Blood Urea Nitrogen 6 mg/dL (7-20) Creatinine 0.7 mg/dL (0.6-1.0) Estimated GFR (Cockcroft-Gault) 120.6 BUN/Creatinine Ratio 9 (6-20) Glucose Level 101 mg/dL (70-99) Lactic Acid Level 1.8 mmol/L (0.4-2.0) Calcium Level 8.9 mg/dL (8.5-10.1) Magnesium Level 2.0 mg/dL (1.8-2.4) Total Bilirubin 0.1 mg/dL (0.2-1.0) Aspartate Amino Transf (AST/SGOT) 26 U/L (15-37) Alanine Aminotransferase (ALT/SGPT) 14 U/L (14-59) Alkaline Phosphatase 70 U/L (46-116) Troponin I Quantitative < 0.017 ng/mL (0.000-0.055) Total Protein 8.7 g/dL (6.4-8.2) Albumin 4.1 g/dL (3.4-5.0) Albumin/Globulin Ratio 0.9 (1.0-1.7) Influenza Type A Antigen Negative (NEGATIVE) Influenza Type B Antigen Negative (NEGATIVE) Urine Collection Type Unknown Urine Color Yellow Urine Clarity Cloudy Urine pH 7.5 Urine Specific [place] 1.020 Urine Protein Negative mg/dL (NEG-TRACE) Urine Glucose (UA) Negative mg/dL (NEG) Urine Ketones (Stick) Negative mg/dL (NEG) Urine Blood Negative (NEG) Urine Nitrite Negative (NEG) Urine Bilirubin Negative (NEG) Urine Urobilinogen Dipstick 0.2 mg/dL (0.2 mg/dL) Urine Leukocyte Esterase Moderate (NEG) Urine RBC 0 /HPF (0-2) Urine WBC 11-20 /HPF (0-4) Urine Squamous Epithelial Cells Mod /LPF Urine Amorphous Sediment Present /HPF Urine Bacteria Few /HPF (0-FEW) Urine Mucus Slight /LPF Bedside Urine HCG, Qualitative Hcg negative (Negative) Medications Active Scripts Medications Dose Route/Sig Max Daily Dose Days Date Category Dose Instructions Ventolin Hfa Inhaler (Albuterol Sulfate) 18 Gm Hfa.aer.ad 2 Puff INH Q4HRS 30 07/13/18 Rx Montelukast Sodium Tablet (Montelukast Sodium) 10 Mg Tablet 10 Mg PO QHS 30 07/13/18 Rx Keppra (Levetiracetam) 1,000 Mg Tablet 1,000 Mg PO BID 30 07/13/18 Rx Prednisone (Prednisone) 10 Mg Tablet 10 Mg PO UD 13 07/13/18 Rx take 4 tablets daily for 3 days, then decrease by 1 tablet every 3 days til gone Symbicort 160-4.5 Mcg Inhaler (Budesonide/Formoterol Fumarate) 10.2 Gm Hfa.aer.ad 2 Puff IH DAILY 30 07/13/18 Rx Pulmicort (Budesonide) 0.5 Mg/2 Ml Ampul.neb 1 Vial NEB BID 02/15/17 Rx Proair Hfa Inhaler (Albuterol Sulfate) 8.5 Gm Hfa.aer.ad 1 Puff INH PRN Q6HRS PRN 11/13/16 Rx Proair Hfa Inhaler (Albuterol Sulfate) 8.5 Gm Hfa.aer.ad 1 Puff INH PRN Q6HRS PRN 09/07/16 Rx Albuterol Sulfate Hfa Inhaler (Albuterol Sulfate) 8.5 Gm Hfa.aer.ad 2 Puff INH Q4HRS 06/11/14 Reported Impression . 1. Dyspnea secondary to acute asthma exacerbation in a patient who has moderately persistent asthma under suboptimal control due to inability to afford maintenance steroid inhaler and short-acting bronchodilators. She has another exacerbation. She has prior history of respiratory failure secondary to asthma exacerbation. 2. No evidence of pneumonia. 3. History of Bryce-Laureano syndrome with chronic myoclonus. Plan . 1. Continue with present DuoNebs. 2. Continue with budesonide. 3. oral prednisone. 4. Likely discharge today 5. I have advised the patient to follow with her primary care doctor, who can also provide samples of steroid inhaler. This would be the best medicine for her to keep her asthma under control. I will give sample of Breo from office before discharge d/w KERRY MARQUEZ MD Jul 14, 2018 11:53
--- NOTE | 2018-07-14 11:59 | NUR ---
Pt discharged at approx 1200 via wheelchair with family present. Pt given all scripts. Educational material, resources as well as sample of Breo provided. Pt educated prior to discharge.
== END 2018-07-14 12:00 | disposition home or self-care (01) | DRG 203 ==
LOC: ER 21:56 → 2 SOUTH 23:50
PROVIDERS: ADMIT Internal Medicine; ATTEND Internal Medicine
DX: J45.41 Moderate persistent asthma with (acute) exacerbation (principal); F12.90 Cannabis use, unspecified, uncomplicated; F41.9 Anxiety disorder, unspecified; Z86.74 Personal history of sudden cardiac arrest; Z82.49 Family history of ischemic heart disease and other diseases of the circulatory system
CPT/HCPCS: 36415; 71045; 80053; 81001; 81025; 83605; 83735; 84484; 85007; 85025; 87040; 87086; 87804; 93005; 94640; 96361; 96374; 96375; J2060; J2930; J7030; J7040; J7512; J7620; J7626; 99285-25

== ENCOUNTER 2018-09-21 02:56 | Emergency (ER) | payer SELFPAY ==
[~2018-09-21] VITALS: Ht 160 cm; Wt 44.0 kg
[~2018-09-21 02:56] MED LIST changes: +LEVE100020 PO; +MONT10TA49 PO; +VENTOLIN HFA18 GM INH
[2018-09-21] MEDS ORDERED: IV NORMAL SALINE 500ML BAG 500 ML IV ONE (03:30)
[2018-09-21 03:31] LABS: BASO # 0.1 x10^3/uL (0.0-0.2); BASO % 1 % (0-3); EOS # 0.5 x10^3/uL (0.0-0.7); EOS % 5 % (0-3); HEMATOCRIT 36.9 % (36.0-47.0); HEMOGLOBIN 12.1 g/dL (12.0-15.5); LYMPH # 3.5 x10^3/uL (1.0-4.8); LYMPH % 37 % (24-48); MEAN CORPUSCULAR HEMOGLOBIN 26 pg (25-35); MEAN CORPUSCULAR HGB CONC 33 g/dL (31-37); MEAN CORPUSCULAR VOLUME 81 fL (79-100); MONO # 0.8 x10^3/uL (0.0-1.1); MONO % 9 % (0-9); NEUT # 4.5 x10^3uL (1.8-7.7); NEUT % 48 % (31-73); PLATELET COUNT 200 x10^3/uL (140-400); RED BLOOD COUNT 4.57 x10^6/uL (3.50-5.40); RED CELL DISTRIBUTION WIDTH 18.6 % (11.5-14.5); WHITE BLOOD COUNT 9.3 x10^3/uL (4.0-11.0)
[2018-09-21 03:40] LABS: ALBUMIN 3.9 g/dL (3.4-5.0); CALCIUM 9.1 mg/dL (8.5-10.1); CREATININE 0.6 mg/dL (0.6-1.0); TOTAL BILIRUBIN 0.1 mg/dL (0.2-1.0)
--- NOTE | 2018-09-21 03:42 | RAD ---
CT head without contrast: Reason for examination: Seizure. Axial images were obtained through the brain. No contrast was administered. Exposure: One or more of the following individualized dose reduction techniques were utilized for this examination: 1. Automated exposure control 2. Adjustment of the mA and/or kV according to patient size 3. Use of iterative reconstruction technique. Ventricular systems are symmetric and not dilated. No midline shift is seen. There is no evidence of intracranial hemorrhage, infarct, mass or edema. No abnormalities are seen at the orbits. The paranasal sinuses show some mucosal thickening especially in the maxillary antra. The mastoid air cells are clear. No acute abnormality seen in the skull. IMPRESSION: No acute intracranial abnormality evident. Mucosal thickening especially in the maxillary antra. Electronically signed by: Annie Holder MD (09/21/2018 3:39 AM) [facility]
[2018-09-21] MEDS ORDERED: ACETAMINOPHEN 500 MG TABLET PO ONE (04:00)
[2018-09-21 04:07] LABS: POTASSIUM 3.3 mmol/L (3.5-5.1)
[2018-09-21 05:00] VITALS: BP 117/82
--- NOTE | 2018-09-21 05:15 | PHYS DOC ---
Past Medical History Past Medical History: Anxiety, Asthma, Other Additional Past Medical Histor: 'FLAVIO LAUREANO SYNDROME' Past Surgical History: Other Additional Past Surgical Histo: trache as Alcohol Use: Occasionally Drug Use: Marijuana Adult General Chief Complaint Chief Complaint: ALCOHOL INTOXICATION [facility] HPI Patient is a 28 year old female brought in by ambulance with a chief complaint of fall and abnormal movements apparently she was playing with some children she bumped her head on the side of the bed. She then was having increasing myoclonic movements for which she takes Keppra family was concerned and called 911. Patient remembers the event patient has drank alcohol tonight blood sugar was normal for the paramedics Review of Systems Review of Systems Constitutional: Denies fever or chills [] Cardiovascular: No additional information not addressed in HPI [] GI: Denies abdominal pain, nausea, vomiting, bloody stools or diarrhea [] : Denies dysuria or hematuria [] Musculoskeletal: Denies back pain or joint pain [] Integument: Denies rash or skin lesions [] Neurologic: Patient reports a headache All other systems were reviewed and found to be within normal limits, except as documented in this note. Current Medications Current Medications Current Medications Medications (Trade) Dose Ordered Sig/Alex Start Time Stop Time Status Last Admin Dose Admin Acetaminophen (Tylenol) 1,000 mg 1X ONCE 09/21/18 04:00 09/21/18 04:01 DC 09/21/18 03:51 1,000 MG Sodium Chloride 500 ml @ 500 mls/hr 1X ONCE 09/21/18 03:30 09/21/18 04:29 DC 09/21/18 03:32 500 MLS/HR Allergies Allergies Allergies Coded Allergies Type Severity Reaction Last Updated Verified No Known Drug Allergies 08/28/14 No Physical Exam Physical Exam Constitutional: Well developed, well nourished, mild distress HENT: Normocephalic, superficial abrasion to the left cheek, bilateral external ears normal, oropharynx moist, no oral exudates, nose normal. [] Eyes: PERRLA, EOMI, conjunctiva normal, no discharge. [] Neck: Normal range of motion, no tenderness, supple, no stridor. [] Cardiovascular:Heart rate regular rhythm, no murmur [] Lungs & Thorax: Bilateral breath sounds clear to auscultation [] Abdomen: Bowel sounds normal, soft, no tenderness, no masses, no pulsatile masses. [] Skin: Warm, dry, no erythema, no rash. [] Back: No tenderness, no CVA tenderness. [] Extremities: No tenderness, no cyanosis, no clubbing, ROM intact, no edema. [] Neurologic: Alert and oriented X 3, does have some intermittent mild clonus noted patient has decreased tone and mass of the lower extremity muscles. Otherwise Normal sensory function, no focal deficits noted. [] Psychologic: Mood is anxious but redirectable Current Patient Data Vital Signs Vital Signs Date Time Temp Pulse Resp B/P (MAP) Pulse Ox O2 Delivery O2 Flow Rate FiO2 09/21/18 02:57 98.5 125 18 150/99 (116) 98 Room Air 98.5 Lab Values Laboratory Tests Test 09/21/18 03:10 09/21/18 03:25 White Blood Count 9.3 x10^3/uL (4.0-11.0) Red Blood Count 4.57 x10^6/uL (3.50-5.40) Hemoglobin 12.1 g/dL (12.0-15.5) Hematocrit 36.9 % (36.0-47.0) Mean Corpuscular Volume 81 fL (79-100) Mean Corpuscular Hemoglobin 26 pg (25-35) Mean Corpuscular Hemoglobin Concent 33 g/dL (31-37) Red Cell Distribution Width 18.6 % (11.5-14.5) H Platelet Count 200 x10^3/uL (140-400) Neutrophils (%) (Auto) 48 % (31-73) Lymphocytes (%) (Auto) 37 % (24-48) Monocytes (%) (Auto) 9 % (0-9) Eosinophils (%) (Auto) 5 % (0-3) H Basophils (%) (Auto) 1 % (0-3) Neutrophils # (Auto) 4.5 x10^3uL (1.8-7.7) Lymphocytes # (Auto) 3.5 x10^3/uL (1.0-4.8) Monocytes # (Auto) 0.8 x10^3/uL (0.0-1.1) Eosinophils # (Auto) 0.5 x10^3/uL (0.0-0.7) Basophils # (Auto) 0.1 x10^3/uL (0.0-0.2) Sodium Level 146 mmol/L (136-145) H Potassium Level 3.3 mmol/L (3.5-5.1) L Chloride Level 107 mmol/L (98-107) Carbon Dioxide Level 22 mmol/L (21-32) Anion Gap 17 (6-14) H Blood Urea Nitrogen 6 mg/dL (7-20) L Creatinine 0.6 mg/dL (0.6-1.0) Estimated GFR (Cockcroft-Gault) 143.0 BUN/Creatinine Ratio 10 (6-20) Glucose Level 122 mg/dL (70-99) H Calcium Level 9.1 mg/dL (8.5-10.1) Total Bilirubin 0.1 mg/dL (0.2-1.0) L Aspartate Amino Transferase (AST) 30 U/L (15-37) Alanine Aminotransferase (ALT) 26 U/L (14-59) Alkaline Phosphatase 54 U/L (46-116) Total Protein 8.0 g/dL (6.4-8.2) Albumin 3.9 g/dL (3.4-5.0) Albumin/Globulin Ratio 1.0 (1.0-1.7) Ethyl Alcohol Level 274 mg/dL (0-10) H Maternal Serum HCG Beta Subunit < 1 mIU/mL (0-5) Laboratory Tests 09/21/18 03:10 Laboratory Tests 09/21/18 03:10 EKG EKG [] Radiology/Procedures Radiology/Procedures [] Course & Med Decision Making Course & Med Decision Making Pertinent Labs and Imaging studies reviewed. (See chart for details) []Patient refused to give us a urine sample in the emergency room so we did a serum beta hCG. 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 In the emergency room she had a fall earlier today bumped her head alcohol level [id number] head CT negative neurologically does have some intermittent myoclonus, mild slurred speech consistent with known alcohol abuse however no focal neuro findings she was observed for couple of hours she remained stable we will discharge her in stable condition. Counseled her on limiting alcohol use Dragon Disclaimer Dragon Disclaimer This electronic medical record was generated, in whole or in part, using a voice recognition dictation system. Departure Departure Impression: Primary Impression: Alcohol intoxication Disposition: 01 HOME, SELF-CARE Condition: STABLE Patient Instructions: Eliane Cr, [id number] ADALBERTO VALENCIA MD Sep 21, 2018 05:15
== END 2018-09-21 05:28 | disposition home or self-care (01) ==
LOC: ER 02:56
DX: F10.129 Alcohol abuse with intoxication, unspecified (principal); G25.3 Myoclonus; R51 Headache; R47.81 Slurred speech; Y90.8 Blood alcohol level of 240 mg/100 ml or more; F41.9 Anxiety disorder, unspecified; J45.909 Unspecified asthma, uncomplicated; W18.39XA Other fall on same level, initial encounter; Y93.89 Activity, other specified; Y92.89 Other specified places as the place of occurrence of the external cause; Y99.8 Other external cause status
CPT/HCPCS: 36415; 70450; 80053; 84702; 85025; 99285; G0480; J7040

== ENCOUNTER 2018-10-17 14:49 | Emergency (ER) | payer MEDICAID ==
[~2018-10-17] VITALS: Ht 157.5 cm; Wt 44.0 kg
[2018-10-17] MEDS ORDERED: levETIRAcetam 500 MG TABLET PO STA (15:50)
--- NOTE | 2018-10-17 15:54 | PHYS DOC ---
Past Medical History Past Medical History: Anxiety, Asthma, Other Additional Past Medical Histor: 'FLAVIO HARDING SYNDROME' Past Surgical History: Other Additional Past Surgical Histo: trache as Alcohol Use: Occasionally Drug Use: Marijuana Adult General Chief Complaint Chief Complaint: MULTIPLE COMPLAINTS [facility] HPI Patient is a 28 year old female presents to the ER with multiple complaints. The patient states that she needs a medication refill on Keppra and clonazepam. The patient also states that she's been having vaginal pain. Out of her medications today and has been having a vaginal issues for 1 week. Rates her pain as 9 out of 10 in severity and describes it as sharp. Has not taking medication for her pain. Review of Systems Review of Systems Constitutional: Denies fever or chills [] Eyes: Denies change in visual acuity, redness, or eye pain [] HENT: Denies nasal congestion or sore throat [] Respiratory: Denies cough or shortness of breath [] Cardiovascular: No additional information not addressed in HPI [] GI: Denies abdominal pain, nausea, vomiting, bloody stools or diarrhea [] : Denies dysuria or hematuria Reports vaginal pain. Musculoskeletal: Denies back pain or joint pain [] Integument: Denies rash or skin lesions [] Neurologic: Denies headache, focal weakness or sensory changes [] Endocrine: Denies polyuria or polydipsia [] Complete systems were reviewed and found to be within normal limits, except as documented in this note. Current Medications Current Medications Current Medications Medications (Trade) Dose Ordered Sig/Alex Start Time Stop Time Status Last Admin Dose Admin Ibuprofen (Motrin) 800 mg 1X ONCE 10/17/18 17:15 10/17/18 17:16 UNV Levetiracetam (Keppra) 1,000 mg 1X STAT 10/17/18 15:50 10/17/18 15:53 DC 10/17/18 15:50 1,000 MG Allergies Allergies Allergies Coded Allergies Type Severity Reaction Last Updated Verified No Known Drug Allergies 08/28/14 No Physical Exam Physical Exam Constitutional: Well developed, well nourished, no acute distress, non-toxic appearance. [] HENT: Normocephalic, atraumatic, bilateral external ears normal, oropharynx moist, no oral exudates, nose normal. [] Eyes: PERRLA, EOMI, conjunctiva normal, no discharge. [] Neck: Normal range of motion, no tenderness, supple, no stridor. [] Cardiovascular:Heart rate regular rhythm, no murmur [] Lungs & Thorax: Bilateral breath sounds clear to auscultation [] Abdomen: Bowel sounds normal, soft, no tenderness, no masses, no pulsatile masses. [] Skin: Warm, dry, no erythema, no rash. [] Back: No tenderness, no CVA tenderness. [] Extremities: No tenderness, no cyanosis, no clubbing, ROM intact, no edema. [] Neurologic: Alert and oriented X 3, normal motor function, normal sensory function, no focal deficits noted. [] Psychologic: Affect flat, judgement normal Current Patient Data Vital Signs Vital Signs Date Time Temp Pulse Resp B/P (MAP) Pulse Ox O2 Delivery O2 Flow Rate FiO2 10/17/18 15:39 99.1 104 16 117/81 (93) 99 Room Air 99.1 EKG EKG [] Radiology/Procedures Radiology/Procedures [] Course & Med Decision Making Course & Med Decision Making Pertinent Labs and Imaging studies reviewed. (See chart for details) Discussed with patient the need for a primary care provider to be refilling her prescriptions. Discussed how I will refill Keppra for a limited time. Will not refill Clonazepam as she has a refill per [facility]. I will also do a pelvic exam. Started to do pelvic exam, and it was not needed, the patient has any area of inflammation from what appears to be an ingrown hair on her posterior right cheek. Area does not appear to be able to be drained due to abscess does not have fluctuance. Will d/c home on Keflex. Dragon Disclaimer Dragon Disclaimer This electronic medical record was generated, in whole or in part, using a voice recognition dictation system. Departure Departure Impression: Primary Impression: Medication refill Additional Impression: Abscess Disposition: HOME, SELF-CARE Condition: STABLE Referrals: NO PCP (PCP) Patient Instructions: Abscess, Care After, Medication Refill, Emergency Department Additional Instructions: Thank you for visiting [facility]. We appreciate you trusting us with your care. If any additional problems come up don't hesitate to return to visit us. Please follow up with your primary care provider so they can plan additional care if needed and know about the problem that you had. If symptoms worsen come back to the Emergency Department. Any concerning symptoms that start such as chest pain, shortness of air, weakness or numbness on one side of the body, running high fevers or any other concerning symptoms return to the ER. Please fill your medications at any pharmacy and follow the prescription instructions. You have been prescribed an antibiotic today to help fight your infection. Pleas e take all of the antibiotic as directed. If after 48 hours the infection is not improving, please return for more care. If the infection worsens, return to ER for additional care. Scripts Levetiracetam (KEPPRA) 1,000 Mg Tablet 1 TAB PO BID, #60 TAB 0 Refills Prov: RAINE WILLIS APRN 10/17/18 Cephalexin (KEFLEX) 500 Mg Capsule 1 CAP PO BID for 7 Days, #14 CAP Prov: RAINE WILLIS APRN 10/17/18 Problem Qualifiers RAINE WILLIS APRN Oct 17, 2018 15:54
[2018-10-17] MEDS ORDERED: LEVE100020 PO ×2 (17:11→17:13)
[2018-10-17] MEDS ORDERED: CEPH-264 PO (17:11)
[2018-10-17] MEDS ORDERED: IBUPROFEN 400 MG TABLET. PO ONE (17:15)
[2018-10-17 17:45] VITALS: BP 118/77
== END 2018-10-17 17:47 | disposition home or self-care (01) ==
LOC: ER 14:49
DX: N76.0 Acute vaginitis (principal); Z76.0 Encounter for issue of repeat prescription; J45.909 Unspecified asthma, uncomplicated; F41.9 Anxiety disorder, unspecified
CPT/HCPCS: 99284

== ENCOUNTER 2019-04-13 12:12 | Emergency (ER) | payer MEDICAID ==
[~2019-04-13] VITALS: Ht 157.5 cm; Wt 49.9 kg
[~2019-04-13 12:12] MED LIST changes: +CEPH-264 PO
[2019-04-13] MEDS ORDERED: levETIRAcetam 500 MG in IV DEXTROSE 5% 100ML 100 ML IV ONE (12:30)
[2019-04-13] MEDS ORDERED: IV NORMAL SALINE 1000ML BAG 1,000 ML IV ONE (12:30)
[2019-04-13 12:41] LABS: BASO # 0.1 x10^3/uL (0.0-0.2); BASO % 1 % (0-3); EOS # 0.4 x10^3/uL (0.0-0.7); EOS % 4 % (0-3); HEMATOCRIT 35.3 % (36.0-47.0); HEMOGLOBIN 11.4 g/dL (12.0-15.5); LYMPH # 1.3 x10^3/uL (1.0-4.8); LYMPH % 10 % (24-48); MEAN CORPUSCULAR HEMOGLOBIN 25 pg (25-35); MEAN CORPUSCULAR HGB CONC 32 g/dL (31-37); MEAN CORPUSCULAR VOLUME 78 fL (79-100); MONO # 0.5 x10^3/uL (0.0-1.1); MONO % 4 % (0-9); NEUT # 9.8 x10^3/uL (1.8-7.7); NEUT % 81 % (31-73); PLATELET COUNT 180 x10^3/uL (140-400); RED BLOOD COUNT 4.53 x10^6/uL (3.50-5.40); RED CELL DISTRIBUTION WIDTH 17.9 % (11.5-14.5); WHITE BLOOD COUNT 12.2 x10^3/uL (4.0-11.0)
[2019-04-13 12:53] LABS: CALCIUM 9.3 mg/dL (8.5-10.1); CREATININE 0.9 mg/dL (0.6-1.0); GFR 89.6
[2019-04-13] MEDS ORDERED: levETIRAcetam 500 MG in IV DEXTROSE 5% 100ML 100 ML IV SCH (13:00)
[2019-04-13 13:08] LABS: ALBUMIN 4.3 g/dL (3.4-5.0); ALBUMIN/GLOBULIN RATIO 1.3 (1.0-1.7); TOTAL PROTEIN 7.6 g/dL (6.4-8.2)
[2019-04-13 13:23] LABS: CLARITY,URINE BLOODY; COLOR,URINE RED
[2019-04-13 13:24] LABS: RBC,URINE TNTC /HPF (0-2)
[2019-04-13 13:25] LABS: BACTERIA,URINE FEW /HPF (0-FEW)
[2019-04-13 13:26] LABS: SQUAMOUS EPITHELIAL CELL,UR FEW /LPF
[2019-04-13 14:05] VITALS: BP 114/79
[2019-04-13] MEDS ORDERED: [UNRECOGNIZED DRUG - CODE] PO (14:06)
[2019-04-13] MEDS ORDERED: CLON-77 PO (14:06)
--- NOTE | 2019-04-13 14:06 | PHYS DOC ---
Past Medical History Past Medical History: Anxiety, Asthma, Other Additional Past Medical Histor: 'FLAVIO LAUREANO SYNDROME' Past Surgical History: Other Additional Past Surgical Histo: trache as Alcohol Use: Occasionally Drug Use: Marijuana Adult General Chief Complaint Chief Complaint: SEIZURE HPI HPI Patient is a 28-year-old female who arrives via EMS with report of possible seizure activity at home. EMS states the patient's daughter had reported that patient was shaking all over. Patient has history of Bryce Laureano disease and patient takes Keppra as well as clonazepam for her seizures. Patient states that she ran out of her Keppra 2 days ago and took her last clonazepam last night.[] Review of Systems Review of Systems Constitutional: Denies fever or chills [] Respiratory: Denies cough or shortness of breath [] Cardiovascular: No additional information not addressed in HPI [] GI: Denies abdominal pain, nausea, vomiting, bloody stools or diarrhea [] Integument: Denies rash or skin lesions [] Neurologic: Denies headache, focal weakness or sensory changes. Positive seizure activity. [] All other systems were reviewed and found to be within normal limits, except as documented in this note. Current Medications Current Medications Current Medications Medications (Trade) Dose Ordered Sig/Alex Start Time Stop Time Status Last Admin Dose Admin Levetiracetam 500 mg/Dextrose 105 ml @ 420 mls/hr 1X ONCE 04/13/19 12:30 04/13/19 12:44 DC 04/13/19 13:08 420 MLS/HR Lorazepam (Ativan Inj) 1 mg 1X ONCE 04/13/19 12:30 04/13/19 12:31 DC 04/13/19 12:32 1 MG Sodium Chloride 1,000 ml @ 1,000 mls/hr 1X ONCE 04/13/19 12:30 04/13/19 13:29 DC 04/13/19 12:33 1,000 MLS/HR Allergies Allergies Allergies Coded Allergies Type Severity Reaction Last Updated Verified No Known Drug Allergies 08/28/14 No Physical Exam Physical Exam Constitutional: Well developed, well nourished, no acute distress, non-toxic ap pearance. [] HENT: Normocephalic, atraumatic, bilateral external ears normal, oropharynx moist, no oral exudates, nose normal. [] Eyes: PERRLA, EOMI, conjunctiva normal, no discharge. [] Neck: Normal range of motion, no tenderness, supple, no stridor. [] Cardiovascular: Regular rate and rhythm[] Lungs & Thorax: Bilateral breath sounds clear to auscultation [] Abdomen: Bowel sounds normal, soft, no tenderness. [] Skin: Warm, dry, no erythema, no rash. [] Extremities: No tenderness, no cyanosis, no clubbing, ROM intact. [] Neurologic: Alert and oriented X 3, no focal deficits noted. [] Current Patient Data Vital Signs Vital Signs Date Time Temp Pulse Resp B/P (MAP) Pulse Ox O2 Delivery O2 Flow Rate FiO2 04/13/19 12:12 98.8 122 28 131/79 (96) 98 Room Air 98.8 Lab Values Laboratory Tests Test 04/13/19 12:25 04/13/19 13:00 White Blood Count 12.2 x10^3/uL (4.0-11.0) H Red Blood Count 4.53 x10^6/uL (3.50-5.40) Hemoglobin 11.4 g/dL (12.0-15.5) L Hematocrit 35.3 % (36.0-47.0) L Mean Corpuscular Volume 78 fL (79-100) L Mean Corpuscular Hemoglobin 25 pg (25-35) Mean Corpuscular Hemoglobin Concent 32 g/dL (31-37) Red Cell Distribution Width 17.9 % (11.5-14.5) H Platelet Count 180 x10^3/uL (140-400) Neutrophils (%) (Auto) 81 % (31-73) H Lymphocytes (%) (Auto) 10 % (24-48) L Monocytes (%) (Auto) 4 % (0-9) Eosinophils (%) (Auto) 4 % (0-3) H Basophils (%) (Auto) 1 % (0-3) Neutrophils # (Auto) 9.8 x10^3/uL (1.8-7.7) H Lymphocytes # (Auto) 1.3 x10^3/uL (1.0-4.8) Monocytes # (Auto) 0.5 x10^3/uL (0.0-1.1) Eosinophils # (Auto) 0.4 x10^3/uL (0.0-0.7) Basophils # (Auto) 0.1 x10^3/uL (0.0-0.2) Sodium Level 144 mmol/L (136-145) Potassium Level 4.0 mmol/L (3.5-5.1) Chloride Level 103 mmol/L (98-107) Carbon Dioxide Level 21 mmol/L (21-32) Anion Gap 20 (6-14) H Blood Urea Nitrogen 7 mg/dL (7-20) Creatinine 0.9 mg/dL (0.6-1.0) Estimated GFR (Cockcroft-Gault) 89.6 BUN/Creatinine Ratio 8 (6-20) Glucose Level 83 mg/dL (70-99) Lactic Acid Level 3.8 mmol/L (0.4-2.0) H Calcium Level 9.3 mg/dL (8.5-10.1) Total Bilirubin 1.0 mg/dL (0.2-1.0) Aspartate Amino Transferase (AST) 33 U/L (15-37) Alanine Aminotransferase (ALT) 17 U/L (14-59) Alkaline Phosphatase 47 U/L (46-116) Creatine Kinase 227 U/L (26-192) H Total Protein 7.6 g/dL (6.4-8.2) Albumin 4.3 g/dL (3.4-5.0) Albumin/Globulin Ratio 1.3 (1.0-1.7) Urine Collection Type Unknown Urine Color Red Urine Clarity Bloody Urine pH Urine Specific [place] Urine Protein mg/dL (NEG-TRACE) Urine Glucose (UA) mg/dL (NEG) Urine Ketones (Stick) mg/dL (NEG) Urine Blood (NEG) Urine Nitrite (NEG) Urine Bilirubin (NEG) Urine Urobilinogen Dipstick mg/dL (0.2 mg/dL) Urine Leukocyte Esterase (NEG) Urine RBC Tntc /HPF (0-2) Urine WBC 5-10 /HPF (0-4) Urine Squamous Epithelial Cells Few /LPF Urine Bacteria Few /HPF (0-FEW) Laboratory Tests 04/13/19 12:25 Laboratory Tests 04/13/19 12:25 EKG EKG [] Radiology/Procedures Radiology/Procedures [] Course & Med Decision Making Course & Med Decision Making Pertinent Labs and Imaging studies reviewed. (See chart for details) [] Dragon Disclaimer Dragon Disclaimer This electronic medical record was generated, in whole or in part, using a voice recognition dictation system. Departure Departure Impression: Primary Impression: Seizure disorder Disposition: 01 HOME, SELF-CARE Condition: STABLE Referrals: NO PCP (PCP) Patient Instructions: Seizure, Adult Scripts Clonazepam (CLONAZEPAM ) 0.5 Mg Tablet 0.5 MG PO TID for FOR ANXIETY, #15 TAB Prov: ELDA PATTEN Jr. DO 04/13/19 Levetiracetam (KEPPRA XR) 750 Mg Tab.er.24h 1 TAB PO BID for 15 Days, #30 TAB 0 Refills Prov: ELDA PATTEN Jr. DO 04/13/19 ELDA PATTEN Jr. DO Apr 13, 2019 14:06
== END 2019-04-13 15:10 | disposition home or self-care (01) ==
LOC: ER 12:12
DX: G40.909 Epilepsy, unspecified, not intractable, without status epilepticus (principal); J45.909 Unspecified asthma, uncomplicated; F41.9 Anxiety disorder, unspecified
CPT/HCPCS: 36415; 80053; 81001; 82550; 83605; 85025; 87086; 87186; 96365; 96375; 99284; J1953; J2060; J7030